=== PATIENT | female | born 1945 | race Caucasian/White ===

== ENCOUNTER 2021-05-10 07:28 | Outpatient (CLI) | payer MEDICARE, SELFPAY ==
--- NOTE | ~2021-05-10 | NM_ITS ---
EXAMINATION: NM jennifer stress w perfusion DATE: 05/10/2021 16:15 INDICATION: Dyspnea on exertion. TECHNIQUE: Rest images were obtained following intravenous administration of 9.441 mCi Tc99m tetrofos min (Myoview). The patient was infused intravenously with Lexiscan (regadenoson). Then, 29.1 mCi Tc99 m tetrofosmin (Myoview) was administered intravenously, and stress images were obtained. Data was rec onstructed into short axis and horizontal and vertical long axis SPECT images. Gated SPECT images wer e also obtained. COMPARISON: Chest CT 10/19/2018 FINDINGS: Sensitivity and specificity are decreased by breast attenuation and increased activity belo w the diaphragm. There is no definite reversible or fixed perfusion abnormality to suggest ischemia o r infarction. There is no segmental wall motion abnormality. Left ventricular ejection fraction erika sures 70%. IMPRESSION: 1. No definite ischemia or infarct. Sensitivity and specificity are decreased by breast attenuation a nd increased activity below the diaphragm. 2. Normal left ventricular ejection fraction measuring 70%. Reviewed, dictated and finalized at location A. IMPRESSION: 1. No definite ischemia or infarct. Sensitivity and specificity are decreased b y breast attenuation and increased activity below the diaphragm. 2. Normal left ventricular ejection fraction measuring 70%.
--- NOTE | 2021-05-10 07:50 | ECHO_ITS ---
Patient Info Name: Kelsy Coronado Age: 75 years : 1945 Gender: Female Ht: 65 in Wt: 210 lbs BSA: 2.13 m2 HR: 74 bpm BP: 165 / 106 mmHg Heart Rhythm: Atrial Fibrillation Technical Quality: Fair Exam Date: 05/10/2021 8:04 AM Exam Location: [facility] Pulmonary Patient Status: Outpatient Admit Date: 05/10/2021 Staff Ordering Physician: Armando Hawley DO [place] Supervisor: Lupe Small RDCS Attending Provider: Armando Hawley DO Referring Physician: Chandan VALDEZ; Exam Type: CA echo doppler color flow Study Info Indications R06.00 - Dyspnea, unspecified Complete two-dimensional, color flow and Doppler transthoracic echocardiogram is performed. Summary 1. Complete two-dimensional, color flow and Doppler transthoracic echocardiogram is performed. 2. Left ventricular chamber dimension is normal. 3. Left ventricular systolic function is normal, estimated at 55-60%. 4. There is moderately increased left ventricular wall thickness. 5. The left ventricular diastolic function is abnormal. 6. E/e' 20 is elevated. 7. Atrial fibrillation. 8. Left atrial chamber dimension is severely enlarged. 9. Right atrial chamber dimension is mildly enlarged. 10. There is moderate aortic valve sclerosis. 11. The mitral valve has mildly calcified annulus. 12. There is mild to moderate mitral valve regurgitation. 13. Mild pulmonary hypertension, estimated pulmonary arterial systolic pressure is 47 mmHg. Left Ventricle Atrial fibrillation. E/e' 20 is elevated. Left ventricular chamber dimension is normal. Left ventricular systolic function is normal, estimated at 55-60%. There is moderately increased left ventricular wall thickness. The left ventricular diastolic function is abnormal. Right Ventricle Right ventricular systolic function is normal and with normal TAPSE 1.9 cm. Right ventricular chamber dimension is normal. Left Atria Left atrial chamber dimension is severely enlarged. Right Atria Right atrial chamber dimension is mildly enlarged. Aortic Valve The aortic valve is trileaflet. There is moderate aortic valve sclerosis. There is no aortic valve stenosis. There is no aortic valve regurgitation. Pulmonic Valve There is no pulmonic regurgitation. Mitral Valve The mitral valve has mildly calcified annulus. There is no mitral valve stenosis. There is mild to moderate mitral valve regurgitation. Tricuspid Valve There is no tricuspid valve regurgitation. Mild pulmonary hypertension, estimated pulmonary arterial systolic pressure is 47 mmHg. Pericardium/Pleural There is no pericardial effusion. Inferior Vena Cava Normal inferior vena cava with >50% collapse upon inspiration consistent with normal right atrial pressure, 5 mmHg. Aorta The aortic root size at the sinus of Valsalva is normal. Left Ventricular Outflow Tract Name Value Normal LVOT 2D LVOT Diameter 2.0 cm LVOT Doppler LVOT Peak Gradient 2 mmHg LVOT Mean Gradient 1 mmHg LVOT VTI 18 cm LVOT VTI/AV VTI Ratio 0.8
--- NOTE | 2021-05-10 07:51 | EST_ITS ---
Patient Info Name: Kelsy Coronado Age: 75 years : 1945 Gender: Female Ht: 65 in Wt: 210 lbs BSA: 2.13 m2 HR: 73 bpm BP: 186 / 124 mmHg Heart Rhythm: Atrial Fibrillation Exam Date: 05/10/2021 10:42 AM Exam Location: [facility] Stress Patient Status: Outpatient Admit Date: 05/10/2021 Staff Ordering Physician: Armando Hawley DO Attending Provider: Armando Hawley DO Exercise Technologist: Poly Van CT Exercise Physician: Armando Hawley DO Exam Type: CA stress jennifer w NM Study Info Indications R06.00 - Dyspnea, unspecified A regadenoson stress test was performed. Summary 1. 1. Negative lexiscan stress test for ischemic ST changes by ECG criteria. 2. 2. Baseline hypertension. 3. 3. Nuclear scan to follow and will be reported separately. Please correlate with it. 4. 4. Patient informed of the above results. Protocol: Lexiscan Stress ECG Details Stage: REST Duration (min): 2 min : 1 sec HR (bpm): 71 SBP (mmHg): 186 DBP (mmHg): 121 Stage: REST Duration (min): 10 min : 33 sec HR (bpm): 60 SBP (mmHg): 200 DBP (mmHg): 121 Stage: STAGE 1 Duration (min): 1 min : 0 sec HR (bpm): 76 SBP (mmHg): 191 DBP (mmHg): 120 Stage: RECOVERY Duration (min): 1 min : 0 sec HR (bpm): 96 SBP (mmHg): 191 DBP (mmHg): 120 Stage: RECOVERY Duration (min): 2 min : 0 sec HR (bpm): 87 SBP (mmHg): 191 DBP (mmHg): 120 Stage: RECOVERY Duration (min): 3 min : 0 sec HR (bpm): 78 SBP (mmHg): 191 DBP (mmHg): 120 Stage: RECOVERY Duration (min): 3 min : 21 sec HR (bpm): 81 SBP (mmHg): 145 DBP (mmHg): 111 Rest HR: 60 bpm Peak HR: 96 bpm Rest Sys BP: 200 mmHg Peak Sys BP: 191 mmHg Max Pred HR: 143 bpm % Max Pred HR: 67 % Target HR: 122 bpm Max RPP: 18,336 bpm*mmHg Termination Reason: Completed protocol Cardiac Symptoms: Shortness of breath Total Time: 1 min : 0 sec Rest Vogt BP: 121 mmHg Peak Vogt BP: 120 mmHg Total Dose: 0.4 mg Resting ECG Atrial fibrillation, cannot r/o septal infarct, age indeterminate. Stress ECG No ST changes. Arrhythmias None. Report Signatures
== END 2021-05-10 07:29 | disposition home or self-care (01) ==
LOC: ANHCARD 07:31
PROVIDERS: PCP Internal Medicine Endocrinology, Diabetes & Metabolism; Visit Provider Internal Medicine Cardiovascular Disease
DX: R06.00 Dyspnea, unspecified (principal); I08.0 Rheumatic disorders of both mitral and aortic valves; I27.20 Pulmonary hypertension, unspecified
CPT/HCPCS: 78452; 93017; 93306; A9502; J2785

== ENCOUNTER 2021-05-16 18:19 | Emergency (ER) | payer MEDICARE, SELFPAY ==
--- NOTE | ~2021-05-16 | XR_ITS ---
XR elbow RT min 3V DATE: 05/16/2021 18:40 INDICATION: Fall, posterior elbow pain, swelling TECHNIQUE: 4 views COMPARISON: None FINDINGS: There is prominent posterior soft tissue swelling of the upper extremity centered at the el bow. Mild olecranon process spurring. Old healed fracture of the distal humeral shaft. No recent fracture or dislocation of the elbow. No elbow joint effusion. IMPRESSION: Prominent posterior soft tissue swelling Old healed distal humeral shaft fracture No recent fracture or dislocation or joint effusion Reviewed, dictated and finalized at location A.
--- NOTE | 2021-05-16 18:31 | ED.UPPEXIN ---
HPI - Extremity Injury (Upper) General Chief Complaint: Fall Stated Complaint: fell, right arm injury Time Seen by Provider: 05/16/21 18:22 Source: patient History of Present Illness HPI narrative: Patient presents with right elbow pain. Patient reports she was walking up the steps to her house when she lost her balance and fell onto her right elbow. She developed pain and swelling to the area so she came to the ER for an x-ray of her elbow. Pain is achy,,, does not radiate, worse with moving her elbow. She denies striking her head or any loss of conscious denies any focal numbness or weakness. Wrist there is mild limitations to moving her elbow due to the swelling. Denies any changes in vision she had a prodrome prior to the event such as chest pain shortness of breath lightheadedness or vertigo. She denies any headache, nausea, vomiting. Related Data Home Medications Medication Instructions Recorded Confirmed No Home Medications 04/05/21 04/05/21 apixaban 5 mg tablet 5 mg PO BID 04/08/21 04/08/21 atorvastatin 80 mg tablet 80 mg PO DAILY 04/08/21 04/08/21 carvedilol 25 mg tablet 25 mg PO BID tablet 04/08/21 04/08/21 hydralazine 50 mg tablet 50 mg PO TID 04/08/21 04/08/21 losartan 25 mg tablet 25 mg PO DAILY 04/08/21 04/08/21 magnesium 250 mg tablet 250 mg PO DAILY 04/08/21 04/08/21 potassium 99 mg tablet mg PO 04/08/21 04/08/21 torsemide 20 mg tablet 20 mg PO QID tablet 04/08/21 04/08/21 Allergies Allergy/AdvReac Type Severity Reaction Status Date / Time No Known Allergies Allergy Verified 05/16/21 18:54 Review of Systems Review of Systems: CONSTITUTIONAL: Denies fever, chills, or sweats. EYES: Denies visual changes, redness, or discharge. ENT: Denies rhinorrhea, congestion, sore throat, or otalgia. CARDIOVASCULAR: Denies chest pain, palpitations, or edema. RESPIRATORY: Denies cough or dyspnea. GASTROINTESTINAL: Denies abdominal pain, nausea, vomiting, or diarrhea. GENITOURINARY: Denies dysuria or hematuria. SKIN: Denies rash or itching. MUSCULOSKELETAL: Denies back pain, joint pain, or myalgia. NEUROLOGIC: Denies headache, numbness, dizziness, or weakness. PSYCHIATRIC: Denies anxiety or depression. All systems reviewed & are unremarkable except as noted in HPI and below PMFSH Past Medical History Medical History (Updated 05/16/21 @ 19:04 by Jake Wilkinson MD) MEHTA (dyspnea on exertion) Dyslipidemia Hypertension Obesity Persistent atrial fibrillation Social History Social History Smoking status: Never smoker Exam Narrative: GENERAL: Well-appearing, well-nourished, and in no acute distress. HEAD: Normocephalic, atraumatic. EYES: PERRLA and EOMI. ENT: Nares clear, no rhinorrhea or epistaxis. Mucous membranes moist. NECK: Supple. No masses. No JVD EXTREMITIES: Normal range of motion. Large amount of swelling noted around the right elbow no open or draining wounds no obvious deformity no focal bony tenderness distal extremity with cap refill less than 2 seconds. Patient has 5 out of 5 gas line repairer strength in the right upper extremity with sensation intact light touch SKIN: Warm, dry, no rash. NEURO: No focal deficits. Alert and oriented x3. PSYCH: Normal mood and affect. Course Reevaluation(s) Reevaluation #1: Patient resting comfortably no significant increase and edema appreciated on repeat exam. Plan goals reviewed with patient. Patient is comfortable with the outpatient plan. Date: 05/16/21 Time: 19:02 Vital Signs Vital signs: Vital Signs Temperature 37.0 C 05/16/21 18:32 Pulse Rate 75 05/16/21 18:32 Respiratory Rate 18 05/16/21 18:32 Blood Pressure 147/84 H 05/16/21 18:32 Pulse Oximetry 97 05/16/21 18:32 Temperature 37.0 C 05/16/21 18:32 Pulse Rate 74 05/16/21 18:52 Respiratory Rate 18 05/16/21 18:52 Blood Pressure 147/84 H 05/16/21 18:52 Pulse Oximetry 97 05/16/21 18:52 MDM - Extremity Injury (U
[2021-05-16 18:32] VITALS: BP 147/84; PULSE 75; RESP 18; TEMP 37; O2SAT 97
--- NOTE | 2021-05-16 18:35 | PC.NURSE ---
Radiology at bedside to obtain xray of R arm.
[2021-05-16 18:50] VITALS: PULSE 72; RESP 18; O2SAT 99
[2021-05-16 18:52] VITALS: BP 147/84; PULSE 74; RESP 18; O2SAT 97
--- NOTE | 2021-05-16 19:10 | PC.NURSE ---
Patient report given to ZAIDA Lemons. All questions answered and care of pt transferred.
== END 2021-05-16 19:30 | disposition home or self-care (01) ==
PROVIDERS: Emergency Provider Emergency Medicine; PCP Internal Medicine Endocrinology, Diabetes & Metabolism
DX: S50.01XA Contusion of right elbow, initial encounter (principal); E78.5 Hyperlipidemia, unspecified; I48.19 Other persistent atrial fibrillation; I10 Essential (primary) hypertension; E66.9 Obesity, unspecified; Z68.34 Body mass index [BMI] 34.0-34.9, adult; W10.9XXA Fall (on) (from) unspecified stairs and steps, initial encounter
CPT/HCPCS: 73080; 99283; A4565

== ENCOUNTER 2021-07-03 10:40 | Outpatient (CLI) | payer MEDICARE, SELFPAY ==
[2021-07-03 10:40] VITALS: PULSE 69; O2SAT 92
[2021-07-03 10:45] VITALS: PULSE 83; O2SAT 86
[2021-07-03 10:50] VITALS: PULSE 85; O2SAT 87
[2021-07-03 10:55] VITALS: PULSE 86; O2SAT 88
[2021-07-03 11:00] VITALS: PULSE 88; O2SAT 91
[2021-07-03 11:15] VITALS: PULSE 71; O2SAT 92
--- NOTE | 2021-07-03 13:45 | HOMEO2EVAL ---
Evaluation was performed at [facility] Home Oxygen Evaluation RC: Home Oxygen (O2) Evaluation Start: 07/03/21 13:39 Freq: Status: Active Protocol: RPE Activity Type Activity Date Activity User E-sign Co-sign Detail Recorded Client Recorded Date Recorded By Document 07/03/21 10:40 [email or web address] [email or web address] 07/03/21 13:45 DJO Document 07/03/21 10:45 [email or web address] [email or web address] 07/03/21 13:45 DJO Document 07/03/21 10:50 [email or web address] [email or web address] 07/03/21 13:45 DJO Document 07/03/21 10:55 [email or web address] [email or web address] 07/03/21 13:45 DJO Document 07/03/21 11:00 [email or web address] [email or web address] 07/03/21 13:45 DJO Document 07/03/21 11:15 [email or web address] [email or web address] 07/03/21 13:45 DJO 07/03/21 07/03/21 07/03/21 10:40 10:45 10:50 Home O2 Evaluation Test Phase Resting Exercise Exercise Oxygen Delivery Room Air Room Air Nasal Cannula Oxygen Flow Rate (L/min) 1 Pulse Oximetry (90-100 %) 92 86 L 87 L Pulse Rate (60-100 beats/min) 69 83 85 Activity Tolerance Ambulation Distance (feet) Ambulation Distance (meters) Treatment Charges O2 Evaluation - Outpatient 07/03/21 07/03/21 07/03/21 10:55 11:00 11:15 Home O2 Evaluation Test Phase Exercise Exercise Resting Oxygen Delivery Nasal Cannula Nasal Cannula Room Air Oxygen Flow Rate (L/min) 2 3 Pulse Oximetry (90-100 %) 88 L 91 92 Pulse Rate (60-100 beats/min) 86 88 71 Activity Tolerance Fair Ambulation Distance (feet) 200 Ambulation Distance (meters) 60.95 Treatment Charges
--- NOTE | 2021-07-05 13:27 | P.PCNPFT_ITS ---
PFT Procedure Performed PFT Procedure Performed Spirometry with Pre/Post Bronchodilator Plethysmography (Lung Vol) Diffusing Cap (DLCO) Flow Vol Loop PFT Interpretation Lung volumes were measured with the body plethysmography method. The elevated FRC and RV may suggest air trapping. Spirometry showed diminished expiratory flow rates and a normal FEV1 to FVC ratio of 73% indicative of a restrictive respiratory pattern. The spirometric absence of obstructive airway disease indicates that the elevated FRC and RV may be related to non-communicating air- filled structure or to error in measurement. Furthermore, the mildly elevated TLC excludes significant respiratory restrictive disease. Following admi nistration of a bronchodilator there was no significant change in the expiratory flow rates. Lung diffusion capacity is severely reduced at 37% predicted. The flow volume loop is consistent with restrictive respiratory disease. Isolated expiratory muscle weakness may explain the elevated RV but not the elevated FRC. If this pulmonary function testing is at odds with clinical data, consider rep eating the study. Impression: Nonspecific pattern. Elevated FRC and RV. Severely reduced lung diffusion capacity.
== END 2021-07-03 10:41 | disposition home or self-care (01) ==
PROVIDERS: PCP Internal Medicine Endocrinology, Diabetes & Metabolism; Visit Provider Internal Medicine Pulmonary Disease
DX: R06.02 Shortness of breath (principal); R06.00 Dyspnea, unspecified
CPT/HCPCS: 94060; 94618; 94726; 94729

== ENCOUNTER 2021-11-16 13:31 | Inpatient (IN) | payer MEDICARE, SELFPAY ==
[2021-11-16] VITALS (25 sets, daily range): BP systolic 124–172; BP diastolic 72–113; PULSE 70–94; RESP 14–28; TEMP 36.6–36.9; O2SAT 91–100; BMI 31.7
--- NOTE | ~2021-11-16 | US_ITS ---
EXAMINATION: US venous doppler [facility] DATE: 11/18/2021 16:11 INDICATION: Lower limb swelling TECHNIQUE: Sanchez scale images without and with compression and Doppler images of the bilateral lower e xtremity veins were obtained. COMPARISON: None FINDINGS: The right common femoral vein, profunda femoral vein, femoral vein, popliteal vein, peroneal trunk, p osterior tibial veins, and greater saphenous vein are patent. The left common femoral vein, profunda femoral vein, femoral vein, popliteal vein, peroneal trunk, po sterior tibial veins, and greater saphenous vein are patent. There is a 9.3 x 1.5 cm complex fluid co llection in the left medial popliteal fossa, probable Conte's cyst IMPRESSION: 1. Patent bilateral lower extremity veins. No evidence of deep venous thrombosis. Reviewed, dictated and finalized at location A. IMPRESSION: 1. Patent bilateral lower extremity veins. No evidence of deep venous thrombosi s.
--- NOTE | ~2021-11-16 | XR_ITS ---
XR chest 1V portable 11/16/2021 14:26 Indication: Shortness of breath Procedure: AP portable chest Comparison: 01/18/2016 Findings: Chronic elevation the right diaphragm. Cardiomegaly. There is interstitial edema. No signif icant effusion or pneumothorax. Impression: 1: Cardiomegaly with mild interstitial edema. Reviewed, dictated and finalized at location A. Impression: 1: Cardiomegaly with mild interstitial edema.
--- NOTE | ~2021-11-16 | US_ITS ---
US renal BI 11/17/2021 08:17 Procedure: Realtime transabdominal ultrasound of the kidneys and bladder. Indication: Acute renal insufficiency Comparison: No prior studies for comparison. Findings: Renal echotexture is normal bilaterally without hydronephrosis, contour deforming mass or r enal calculus. The right kidney measures 8.3 cm and left kidney measures 7.9 cm. Bladder within norm al limits. Impression: 1: Unremarkable renal ultrasound. No stones, masses or hydronephrosis. Reviewed, dictated and finalized at location A. Impression: 1: Unremarkable renal ultrasound. No stones, masses or hydronephrosis.
--- NOTE | ~2021-11-16 | XR_ITS ---
EXAMINATION: XR chest 1V portable DATE: 11/18/2021 06:03 INDICATION: Congestive heart failure. TECHNIQUE: A single frontal view of the chest was obtained. COMPARISON: Chest single view 11/16/2021, chest CT 10/19/2018 FINDINGS: There is chronic marked elevation of right hemidiaphragm. There is mild atelectasis at righ t lung base. No pleural effusion or pneumothorax. Cardiomegaly is noted. IMPRESSION: 1. Chronic marked elevation of right hemidiaphragm with mild atelectasis at right lung base. 2. Cardiomegaly. Reviewed, dictated and finalized at location A. IMPRESSION: 1. Chronic marked elevation of right hemidiaphragm with mild atelectasis at rig ht lung base. 2. Cardiomegaly.
--- NOTE | ~2021-11-16 | US_ITS ---
EXAMINATION: US venous doppler UE DATE: 11/18/2021 16:12 INDICATION: Shortness of breath. Congestive heart failure. TECHNIQUE: Grayscale images without and with compression and Doppler images of the bilateral upper ex tremity veins were obtained. COMPARISON: None. FINDINGS: The right internal jugular vein, subclavian vein, axillary vein, brachial vein, basilic vein, cephali c vein, radial vein, and ulnar vein are patent. The left internal jugular vein, subclavian vein, axillary vein, brachial vein, basilic vein, cephalic vein, radial vein, and ulnar vein are patent. IMPRESSION: 1. Patent bilateral upper extremity veins. No evidence of venous thrombosis. Reviewed, dictated and finalized at location B.
--- NOTE | 2021-11-16 13:41 | PC.NURSE ---
Patient was 55% on her baseline 5L upon arrival to her room in the ED. Patient was placed on 15L NRB and O2 went up to 100%. MD at bedside at this time
--- NOTE | 2021-11-16 13:52 | ECG_ITS ---
Measurements Intervals [place] Rate: 79 P: [place]: 0 QRS: 82 QRSD: 87 T: -2 QT: 398 QTc: 459 Interpretive Statements ATRIAL FIBRILLATION NONSPECIFIC ST AND T ABNORMALITY ABNORMAL ECG NO PREVIOUS ECG AVAILABLE FOR COMPARISON Electronically Signed On 11-17-2021 10:13:27 CDT by Skinny Magana M.D.
[2021-11-16 14:10] LABS: Alveolar/Arterial O2 Gradient 145.4 mmHg; Base Excess ABG 19.7 mEq/l (+/-2.0); Basophils Percent Auto 0.3 % (0.2-1.2); Carboxyhemoglobin 0.8 % THb (0-2.0); Eosinophils Absolute Auto 0.1 K/mm3 (0-0.3); Eosinophils Percent Auto 2.8 % (0-4.4); Fractional Inspired Oxygen 40 %; HCO3 ABG 47.4 mEq/l (22.0-26.0); Hematocrit 27.1 % (37.0-47.0); Hemoglobin 7.8 g/dL (12.0-15.0); Immature Granulocyte Absolute 0.01 K/mm3 (0.00-0.031); Immature Granulocyte Percent A 0.3 % (0-0.5); Lymphocytes Absolute Auto 1.39 K/mm3 (0.9-3.2); Lymphocytes Percent Auto 39.4 % (18.3-44.2); Mean Corpuscular HGB Conc 28.8 g/dl (32-36); Mean Corpuscular Hemoglobin 23.4 pg (26-34); Mean Corpuscular Volume 81.4 fl (80-100); Mean Platelet Volume 11.1 fl (7.4-10.4); Methemoglobin ABG 0.7 %THb (0-1.5); Monocytes Absolute Auto 0.4 K/mm3 (0.1-0.6); Monocytes Percent Auto 11.9 % (2.6-8.5); Neutrophils Absolute Auto 1.6 K/mm3 (1.3-6.7); Neutrophils Percent Auto 45.3 % (45.5-73.1); Nucleated Red Blood Cells Perc 0.8 % (0.0-0.2); Oxygen Content ABG 9.8 %vol (16.0-22.0); PO2 FiO2 Ratio Arterial Blood 1.19 %; Platelet Count Result 200 k/mm3 (150-375); Red Blood Count 3.33 M/mm3 (4.2-5.4); Red Cell Distribution Width 20.5 % (11.5-14.5); Total Hemoglobin 8.8 g/dL (12.0-18.0); White Blood Count 3.5 K/mm3 (4.5-10.0); pH ABG 7.391 (7.350-7.450)
[2021-11-16 14:12] LABS: PO2 ABG 47.8 mmHg (80.0-100.0)
[2021-11-16 14:13] LABS: Device NASAL CANNULA; Modified Allen's Test Pass; Oxygen Saturation ABG 80.6 % (95.0-100.0); Oxyhemoglobin 78.5 % THb (90.0-100.0); Site Drawn RIGHT RADIAL
[2021-11-16 14:19] LABS: INR 1.5; Prothrombin Time 17.2 Seconds (11.1-14.7)
[2021-11-16 14:23] LABS: Platelet Estimate Adequate (Adequate)
[2021-11-16 14:26] LABS: Anisocytosis 2+ (NORMAL); Macrocytosis 2+ (NORMAL); Microcytosis 1+ (NORMAL)
[2021-11-16 14:27] LABS: Hypochromasia 2+ (NORMAL); Ovalocytes 1+ (NORMAL); Schistocytes 1+ (NORMAL); Target Cells 1+ (NORMAL)
[2021-11-16] MEDS: FUROSEMIDE INJ 40 MG/4 ML VIAL IV PUSH ×2 (14:46→20:53)
[2021-11-16 15:07] LABS: Alanine Aminotransferase 26 U/L (6-35); Albumin Level 3.6 g/dL (3.5-5.1); Alkaline Phosphatase 89 U/L (38-126); Aspartate Amino Transferase 36 U/L (14-36); Bilirubin,Total 0.7 mg/dL (0.2-1.3); Blood Urea Nitrogen 34 mg/dL (7-17); Calcium 8.5 mg/dL (8.4-10.2); Carbon Dioxide > 40 mmol/L (22-30); Chloride 88 mmol/L (98-107); Estimated CRCL calculation 25 ml/min; Estimated Glomerular Filt Rate 26; Glucose 134 mg/dL (65-110); Potassium 3.7 mmol/L (3.4-5.0); Sodium 142 mmol/L (137-145)
[2021-11-16 15:18] LABS: NT Pro B Type Natriuretic Pept 12100 pg/mL (5-100); Troponin I 0.022 ng/mL (0.000-0.034)
--- NOTE | 2021-11-16 15:27 | ED.GENADULT ---
HPI - General Adult General Chief complaint: Altered Mental Status Stated complaint: sob Time Seen by Provider: 11/16/21 13:37 Source: patient, family and RN notes reviewed Mode of arrival: wheelchair Limitations: clinical condition History of Present Illness HPI narrative: THis is a 76 year old female with history of COPD, CHF, chronic respiratory failure on 3 L NC at rest who presents for evaluation of bilateral leg swelling. On arrival patient was found to be 55% on her home oxygen compressor. Her family states her oxygen saturation was fine prior to arrival. She was not complaining of shortness of breath. Patient was coming to ER because she was having bilateral leg swelling today. She reports chronic shortness of breath and chronic cough for several months. She was admitted to [facility] approximately 2 months ago and she was admitted for CHF. They were told that if patient had worsening swellling she needs to come to ER. She denies chest pain, fever, vomiting or diarrhea. Related Data Home Medications Medication Instructions Recorded Confirmed losartan 25 mg tablet 25 mg PO DAILY 04/08/21 11/16/21 magnesium 250 mg tablet 250 mg PO DAILY 04/08/21 11/16/21 potassium 99 mg tablet 99 mg PO DAILY 04/08/21 11/16/21 calcium carbonate 400 mg/5 mL oral 400 mg PO DAILY 06/17/21 11/16/21 suspension cholecalciferol (vitamin D3) 25 25 mcg PO DAILY 06/17/21 11/16/21 mcg (1,000 unit) capsule mecobalamin (vitamin B12) 5,000 5,000 mcg PO DAILY 06/17/21 11/16/21 mcg disintegrating tablet torsemide 20 mg tablet 20 mg PO QID 07/01/21 11/16/21 apixaban 5 mg tablet (Eliquis) 5 mg PO Q12H 11/16/21 11/16/21 carvedilol 25 mg tablet 25 mg PO Q12H 11/16/21 11/16/21 ferrous sulfate 325 mg (65 mg 325 mg PO DAILY 11/16/21 11/16/21 iron) tablet Allergies Allergy/AdvReac Type Severity Reaction Status Date / Time No Known Allergies Allergy Verified 07/01/21 10:16 Review of Systems Review of Systems: All systems reviewed & are unremarkable except as noted in HPI and below Constitutional: Constitutional: Denies chills, Reports fatigue and Denies fever(s) ENT: Denies nasal congestion Cardiovascular: Cardiovascular: Denies chest pain Respiratory: Respiratory: Reports cough and Reports dyspnea Gastrointestinal: Gastrointestinal: Denies abdominal pain, Denies nausea and Denies vomiting [facility] Past Medical History Medical History (Updated 11/16/21 @ 22:27 by Amena Jain MD) MEHTA (dyspnea on exertion) Dyslipidemia Hypertension Obesity Persistent atrial fibrillation Surgical History Surgical History (Updated 11/16/21 @ 22:17 by Amena Jain MD) No pertinent past surgical history Social History Social History Smoking status: Former smoker Exam Const: General: ill appearing Nutritional Appearance: obese Other: lethargic HENMT: Head: normal to inspection Eyes: EOM: EOMs intact bilaterally Resp: Effort & Inspection: labored, tachypneic and no use of accessory muscles Auscultation: crackles bilateral Cardio: Rate: regular rate Rhythm: regular rhythm Heart sounds: no murmurs GI: GI Palp: Yes Soft to palpation, No Tenderness to palpation present (GI) and No Guarding due to palpation present (GI) Auscultation: normal bowel sounds Skin: General skin exam: normal color Rashes: no rashes Wounds: no wounds Neuro: General: moves all extremities and CN's II-XI intact bilaterally Extrem: General: edema bilateral (leg) Psych: Mental Status: mental status grossly normal Affect: normal affect Attitude: cooperative Course Reevaluation(s) Reevaluation #1: Patient reports she feels better. She is on 5L NC with 97% oxygen saturation. Her ABG is likely mixed but she appears to be compensating. No BIPAP at this time. She will be admitted for CHF, pulmonary edema. Maryking Serrato accepts patient to IMU Date: 11/16/21 Time:
[2021-11-16 17:06] LABS: SARS-CoV-2 RNA PCR Negative
--- NOTE | 2021-11-16 18:08 | ADMGEN ---
This patient, Kelsy Coronado, was admitted to IMU Room 213-01. Patient/family oriented to hospital policies and general routines including ID bracelet, bed and alarms, visiting hours, pain management, procedures, bathroom and other care routines, personal items, smoking policy, room service/diet, and visiting hours. Information on how to activate the Rapid Response Team has been discussed. Patient/Family are encouraged to report perceived risks to care and to ask questions if they do not understand what they are told or what they should do.
--- NOTE | 2021-11-16 20:37 | PM.IMHP ---
H&P: HPI History of Present Illness Date/Time: 11/16/21 20:37 Chief Complaint: shortness of breath Narrative: This is a 76-year-old female with past medical history significant for atrial fibrillation, rate controlled anticoagulated, chronic hypoxic respiratory failure on 3 L by nasal cannula at rest and 4 L with exercise, 3 L at nighttime. patient presents to the emergency room due to worsening shortness of breath for the last 2 months or so recently hospitalized at outside facility, has noted worsening bilateral lower extremity edema and shortness of breath with minimal exertion, patient denies any chest pain, has had some PND and orthopnea as well, no fevers, no rigors, no chills, no nausea, no vomiting. preliminary workup was significant for hemoglobin of 7.8, hematocrit 27, blood gas showed a pH of 7.391, pCO2 80, PO2 47 brain natriuretic peptide 56442 an EKG was interpreted as: ATRIAL FIBRILLATION SEPTAL MYOCARDIAL INFARCTION , OF INDETERMINATE AGE [40+ ms Q WAVE IN V1/V2] NO PREVIOUS ECG AVAILABLE FOR COMPARISON a chest x-ray was reported as: Impression: 1: Cardiomegaly with mild interstitial edema. patient has been admitted for further evaluation management and treatment. Review of Systems Review of Systems: bilateral lower extremity swelling, shortness of breath at exertion, productive cough. Constitutional: Constitutional: Denies chills, Denies fever(s), Denies malaise, Denies night sweats and Denies poor appetite Eyes: Eyes: Denies change in vision ENT: Denies dysphagia, Denies vertigo, Denies dizziness and Denies odynophagia Cardiovascular: Cardiovascular: Denies chest pain, Denies syncope, Denies irregular heart rhythm, Reports leg edema, Denies lightheadedness, Denies palpitations, Reports dyspnea on exertion, Reports orthopnea and Reports paroxysmal nocturnal dyspnea Respiratory: Respiratory: Reports cough and Denies wheezing Gastrointestinal: Gastrointestinal: Denies abdominal pain, Denies dyspepsia, Denies heartburn, Denies diarrhea, Denies nausea and Denies vomiting Genitourinary: Genitourinary: Reports no additional female genitourinary complaints and Reports as per HPI Musculoskeletal: Musculoskeletal: Reports no additional musculoskeletal complaints and Reports as per HPI Integumentary/Breasts: Skin/Breast: Denies rash Neurologic: Denies vertigo, Denies dizziness, Denies syncope, Denies focal weakness and Denies Sensory deficit (Neuro) Psychiatric: Psychiatric: Reports no additional psychiatric complaints and Reports as per HPI Endocrine: Endocrine: Denies cold intolerance, Denies flushing, Denies heat intolerance, Denies polyphagia, Denies polydipsia and Denies palpitations Hematologic/Lymphatic: Hematologic/Lymphatic: Reports no additional hematologic/lymphatic complaints and Reports as per HPI Allergic/Immunologic: Allergic/Immunologic: Reports no additional allergic/immunologic complaints and Reports as per HPI PMFSH Past Medical History Medical History (Updated 11/17/21 @ 04:35 by Paula Chang MD) MEHTA (dyspnea on exertion) Dyslipidemia Hypertension Obesity Persistent atrial fibrillation Surgical History Surgical History (Updated 11/16/21 @ 22:17 by Amena Jain MD) No pertinent past surgical history Family History Family History (Updated 11/16/21 @ 22:32 by Mariya House RN) Sibling Breast cancer Mother Breast cancer Other Breast cancer Niece Social History Social History Smoking status: Never smoker Alcohol intake: never Substance use: never Spiritual care concerns: No Meds Home Medications and Allergies Home Medications Medication Instructions Recorded Confirmed Type losartan 25 mg tablet 25 mg PO DAILY 04/08/21 11/16/21 History magnesium 250 mg tablet 250 mg PO DAILY 04/08/21 11/16/21 History potassium 99 mg tablet 99 mg PO DAILY 04/08/21 11/16/21 History
[2021-11-17] VITALS (17 sets, daily range): BP systolic 139–174; BP diastolic 66–112; PULSE 60–93; RESP 16–24; TEMP 35.7–36.9; O2SAT 92–100
[2021-11-17 05:06] LABS: Basophils Percent Auto 0.6 % (0.2-1.2); Eosinophils Absolute Auto 0.1 K/mm3 (0-0.3); Eosinophils Percent Auto 2.8 % (0-4.4); Hematocrit 27.5 % (37.0-47.0); Hemoglobin 7.9 g/dL (12.0-15.0); Immature Granulocyte Absolute 0.01 K/mm3 (0.00-0.031); Immature Granulocyte Percent A 0.3 % (0-0.5); Lymphocytes Absolute Auto 1.32 K/mm3 (0.9-3.2); Lymphocytes Percent Auto 36.5 % (18.3-44.2); Mean Corpuscular HGB Conc 28.7 g/dl (32-36); Mean Corpuscular Hemoglobin 23.2 pg (26-34); Mean Corpuscular Volume 80.9 fl (80-100); Mean Platelet Volume 10.8 fl (7.4-10.4); Monocytes Absolute Auto 0.4 K/mm3 (0.1-0.6); Monocytes Percent Auto 11.3 % (2.6-8.5); Neutrophils Absolute Auto 1.8 K/mm3 (1.3-6.7); Neutrophils Percent Auto 48.5 % (45.5-73.1); Platelet Count Result 175 k/mm3 (150-375); Red Cell Distribution Width 20.1 % (11.5-14.5); White Blood Count 3.6 K/mm3 (4.5-10.0)
[2021-11-17 05:25] LABS: Alanine Aminotransferase 26 U/L (6-35); Albumin Level 3.8 g/dL (3.5-5.1); Alkaline Phosphatase 100 U/L (38-126); Aspartate Amino Transferase 37 U/L (14-36); Bilirubin,Total 0.9 mg/dL (0.2-1.3); Blood Urea Nitrogen 29 mg/dL (7-17); Calcium 9.1 mg/dL (8.4-10.2); Carbon Dioxide > 40 mmol/L (22-30); Chloride 85 mmol/L (98-107); Estimated CRCL calculation 23 ml/min; Estimated Glomerular Filt Rate 24; Glucose 96 mg/dL (65-110); Potassium 3.4 mmol/L (3.4-5.0); Sodium 142 mmol/L (137-145)
[2021-11-17 05:45] LABS: Anisocytosis 1+ (NORMAL); Hypochromasia 1+ (NORMAL); Platelet Estimate Adequate (Adequate)
[2021-11-17 07:03] LABS: Schistocytes None Seen (NORMAL)
[2021-11-17] MEDS: CHOLECALCIFEROL 1,000 UNITS TABLET 1000 UNITS PO (10:48)
[2021-11-17] MEDS: ISOSORBIDE DINITRATE 10 MG TABLET PO ×3 (10:48→18:23)
[2021-11-17] MEDS: MAGNESIUM OXIDE 200 MG TABLET PO (10:48)
[2021-11-17] MEDS: APIXABAN 5 MG TABLET PO ×2 (10:48→20:55)
[2021-11-17] MEDS: hydrALAZINE HCL 50 MG TABLET PO ×3 (10:48→18:23)
[2021-11-17] MEDS: FERROUS SULFATE 324 MG TABLET PO (10:48)
[2021-11-17] MEDS: CYANOCOBALAMIN 1,000 MCG TABLET 5000 MCG PO (10:48)
[2021-11-17] MEDS: carvediloL 25 MG TABLET PO ×2 (10:48→20:55)
[2021-11-17] MEDS: CALCIUM CARBONATE (TUMS) 500 MG (200 MG ELEMENTAL) 400 MG BY MOUTH (10:49)
[2021-11-17] MEDS: FUROSEMIDE INJ 40 MG/4 ML VIAL IV PUSH ×2 (10:51→20:55)
--- NOTE | 2021-11-17 11:51 | PM.IMPN ---
Progress Note: A&P Assessment and Plan (1) CHF exacerbation: Code(s): I50.9 - Heart failure, unspecified Status: Acute Assessment and Plan: ADMIT TO IMU continuous telemetry continuous pulse ox aggressive diuresis daily intake and output Holland catheter daily weights fluid restriction to 1500 cc (2) Acute and chronic respiratory failure: Code(s): J96.20 - Acute and chronic respiratory failure, unspecified whether with hypoxia or hypercapnia Status: Acute Assessment and Plan: pH is 7.39 appears to be chronically compensated however patient dropped oxygen saturation to 70% with minimal activity currently on her usual requirement supplemental oxygen continue to monitor (3) Diastolic dysfunction: Code(s): I51.89 - Other ill-defined heart diseases Status: Acute Assessment and Plan: continue home meds continue to monitor (4) KEIRA (obstructive sleep apnea): Code(s): G47.33 - Obstructive sleep apnea (adult) (pediatric) Status: Acute Assessment and Plan: patient is on nasal cannula supplemental oxygen 3 L at bedtime (5) Persistent atrial fibrillation: Code(s): I48.19 - Other persistent atrial fibrillation Status: Acute Assessment and Plan: anticoagulated rate controlled (6) JUAN MANUEL (acute kidney injury): Code(s): N17.9 - Acute kidney failure, unspecified Status: Acute Assessment and Plan: on known baseline renal ultrasound in a.m. nephrology consult holding losartan and torsemide however patient appears fluid overload on physical exam Subjective Date/time seen: 11/17/21 11:51 Breathing better Exam Narrative: Patient is laying in bed in recumbent right-sided position Const: General: comfortable, no acute distress, well developed, alert, awake and average body habitus Nutritional Appearance: average body habitus Orientation/consciousness: patient oriented x3 HENMT: Head: normal to inspection, normocephalic and atraumatic Ears: hearing grossly normal bilaterally Face/Nose/Sinus: normal facial exam Face and sinus: normal facial exam Eyes: General: appearance normal, both eyes and all related structures Pupils: Equal, round and reactive pupils present EOM: EOMs intact bilaterally Neck: Neck: full ROM, no lymphadenopathy and no JVD Thyroid: thyroid normal Lymphatic: no lymphadenopathy noted Resp: Effort & Inspection: normal respiratory effort and able to speak in complete sentences Auscultation: clear to auscultation bilaterally Cardio: Jugular venous distension: no JVD Rate: regular rate Rhythm: abnormal rhythm irregularly irregular Heart sounds: S1 normal heart sound present, S2 normal heart sound present, no gallops and Murmur heart sound present GI: Inspection: normal to inspection : General: Yes deferred Skin: Rashes: no rashes Wounds: no wounds Neuro: General: patient oriented x3, CN's II-XI intact bilaterally and Unable to assess gait Cranial nerves: Yes CN's II-XII intact bilaterally and Yes Equal, round and reactive pupils present Cognition (Neuro): normal cognition Speech: normal speech Gait exam (Neuro): Unable to assess gait Motor exam (neuro): 5/5 motor strength present throughout Sensory Exam: No Sensory deficit (Neuro) Extrem: General: edema bilateral (LE 3+) Objective Data Vital Signs Vital Signs: Vital Signs - 24 hr 11/16/21 13:38 11/16/21 14:01 11/16/21 13:45 Temperature Pulse Rate 92 70 83 Respiratory Rate 23 H 18 25 H Blood Pressure 160/82 H 168/113 H Pulse Oximetry 100 91 100 Oxygen Delivery Non-Rebreather Mask Oxygen Flow Rate 15 11/16/21 14:00 11/16/21 14:15 11/16/21 14:45 Temperature Pulse Rate 87 79 Respiratory Rate 19 25 H Blood Pressure 124/76 146/91 H Pulse Oximetry 99 97 97 Oxygen Delivery Nasal Cannula Oxygen Flow Rate 5 11/16/21 15:15 11/16/21 15:45 11/16/21 16:15 Temperature Pulse Rate 8
--- NOTE | 2021-11-17 12:23 | PM.CNNEP ---
Assessment and Plan Assessment and plan (1) Stage 3b chronic kidney disease: Code(s): N18.32 - Chronic kidney disease, stage 3b Status: Chronic Assessment and Plan: baseline creatinine runs around 1.8mg/dl presumably due to HTN and necessity of chronic diuretic therapy recent hospitalization at [facility] about a month ago -- with aggressive diuresis, her creatinine went as high as 2.8mg/dl hence, suspect her renal function will always fluctuate depending on the need for diuretics to maintain her volume status (2) CHF exacerbation: Code(s): I50.9 - Heart failure, unspecified Status: Acute Assessment and Plan: recurrent issue -- admitted to [facility] in October 2021 for same issue follow daily weights monitor I/Os fluid restriction see #1 with regard to renal function and diuresis (3) Acute and chronic respiratory failure: Code(s): J96.20 - Acute and chronic respiratory failure, unspecified whether with hypoxia or hypercapnia Status: Acute Assessment and Plan: drops in oxygen saturation noted from my discussion with nursing, unclear if pulse oximeter getting accurate readings on chronic home oxygen already monitor respiratory status (4) Persistent atrial fibrillation: Code(s): I48.19 - Other persistent atrial fibrillation Status: Chronic Assessment and Plan: rate control strategy on anticoagulation Will continue to follow. History of Present Illness Reason for Consult Consult date: 11/17/21 Reason for consult: chronic renal failure Chief Complaint Chief complaint: acute on chronic resp failure, CHF History of Present Illness Narrative: The patient is a 76-year-old female with a past medical history as outlined below who presented to [facility] emergency for further evaluation of bilateral lower extremity edema/swelling. The patient was just recently hospitalized at [facility] for a CHF exacerbation. She was treated with aggressive diuretic therapy as well as fluid restriction and eventually her respiratory status optimized. She was instructed that if she noted increasing or worsening lower extremity edema, she should return to the ER as this could be a early manifestation of another CHF exacerbation. As this was the case on physical exam by both the patient as well as her family, she came back to the emergency room for further evaluation Workup and evaluation emergency room demonstrated the patient to be hemodynamically stable but she was reportedly with a 55% pulse oximetry reading even though she was on her chronic home oxygen therapy. Her family reported that her oxygen saturations were within the normal range prior to their arrival to the emergency room. Furthermore, the patient herself did not complain of any worsening shortness of breath although she has chronic shortness of breath at baseline. She confirmed that the main reason she came to the hospital was due to the worsening bilateral lower extremity swelling. However, on further questioning, she did report that she has seem to notice some worsening shortness of breath with just exertional activities. She had no other symptoms or complaints with regard to chest pain, fever, vomiting, diarrhea, or abdominal pain. Routine blood test demonstrated labs consistent with her known history of chronic kidney disease and her chest x-ray demonstrated evidence of cardiomegaly with mild interstitial edema. Given her complex medical history as already outlined above in conjunction with the constellation of symptoms and findings in the ER, she was admitted the hospital for further evaluation and therapy Renal consultation was requested due to her known chronic kidney disease. From review of the records, it would seem there is some concern that she may have had acute kidney injury/acute renal failure but I was able to confirm by records obtained from [facility]
[2021-11-17] MEDS: FUROSEMIDE INJ 40 MG/4 ML VIAL 20 MG IV PUSH (15:18)
[2021-11-17 17:11] LABS: Basophils Percent Auto 0.6 % (0.2-1.2); Eosinophils Absolute Auto 0.1 K/mm3 (0-0.3); Eosinophils Percent Auto 3.5 % (0-4.4); Hemoglobin 7.9 g/dL (12.0-15.0); Lymphocytes Percent Auto 38.1 % (18.3-44.2); Mean Corpuscular HGB Conc 29.3 g/dl (32-36); Mean Corpuscular Hemoglobin 23.6 pg (26-34); Mean Corpuscular Volume 80.6 fl (80-100); Mean Platelet Volume 10.5 fl (7.4-10.4); Monocytes Absolute Auto 0.4 K/mm3 (0.1-0.6); Neutrophils Absolute Auto 1.4 K/mm3 (1.3-6.7); Neutrophils Percent Auto 44.8 % (45.5-73.1); Nucleated Red Blood Cells Perc 1.3 % (0.0-0.2); Platelet Count Result 165 k/mm3 (150-375); Red Blood Count 3.35 M/mm3 (4.2-5.4); Red Cell Distribution Width 20.3 % (11.5-14.5); White Blood Count 3.2 K/mm3 (4.5-10.0)
[2021-11-17 17:18] LABS: Platelet Estimate Adequate (Adequate)
[2021-11-17 17:19] LABS: Anisocytosis 1+ (NORMAL); Hypochromasia 1+ (NORMAL); Ovalocytes 1+ (NORMAL); Schistocytes None Seen (NORMAL); Target Cells 2+ (NORMAL)
[2021-11-17 17:24] LABS: Blood Urea Nitrogen 32 mg/dL (7-17); Calcium 8.7 mg/dL (8.4-10.2); Carbon Dioxide > 40 mmol/L (22-30); Chloride 84 mmol/L (98-107); Estimated CRCL calculation 27 ml/min; Estimated Glomerular Filt Rate 29; Glucose 113 mg/dL (65-110); Potassium 3.5 mmol/L (3.4-5.0); Sodium 142 mmol/L (137-145)
[2021-11-17 17:38] LABS: NT Pro B Type Natriuretic Pept 17300 pg/mL (5-100)
[2021-11-17 19:41] LABS: Alveolar/Arterial O2 Gradient 185.3 mmHg; Base Excess ABG 23.6 mEq/l (+/-2.0); Fractional Inspired Oxygen 45 %; HCO3 ABG 50.9 mEq/l (22.0-26.0); Oxygen Content ABG 10.3 %vol (16.0-22.0); PO2 FiO2 Ratio Arterial Blood 1.08 %; Total Hemoglobin 8.8 g/dL (12.0-18.0); pH ABG 7.442 (7.350-7.450)
[2021-11-17 19:48] LABS: PCO2 ABG 76.3 mmHg (35.0-45.0)
[2021-11-17 19:49] LABS: PO2 ABG 48.8 mmHg (80.0-100.0)
[2021-11-17 19:50] LABS: Oxygen Saturation ABG 83.5 % (95.0-100.0); Oxyhemoglobin 82.6 % THb (90.0-100.0); Site Drawn RIGHT RADIAL
[2021-11-17 19:51] LABS: Device HIGH FLOW THERAPY; Modified Allen's Test Pass
[2021-11-17] MEDS: SODIUM CHLORIDE NASAL GEL 14.1 GM 1 APPLIC NASAL (23:38)
[2021-11-18] VITALS (15 sets, daily range): BP systolic 137–186; BP diastolic 76–107; PULSE 58–90; RESP 20–24; TEMP 36.4–36.9; O2SAT 93–100; BMI 32.0
[2021-11-18 04:36] LABS: Basophils Percent Auto 0.8 % (0.2-1.2); Eosinophils Absolute Auto 0.2 K/mm3 (0-0.3); Eosinophils Percent Auto 4.1 % (0-4.4); Hematocrit 24.8 % (37.0-47.0); Hemoglobin 7.3 g/dL (12.0-15.0); Immature Granulocyte Absolute 0.01 K/mm3 (0.00-0.031); Immature Granulocyte Percent A 0.3 % (0-0.5); Lymphocytes Absolute Auto 1.25 K/mm3 (0.9-3.2); Mean Corpuscular HGB Conc 29.4 g/dl (32-36); Mean Corpuscular Hemoglobin 23.5 pg (26-34); Mean Platelet Volume 11.3 fl (7.4-10.4); Monocytes Absolute Auto 0.5 K/mm3 (0.1-0.6); Monocytes Percent Auto 14.7 % (2.6-8.5); Neutrophils Absolute Auto 1.7 K/mm3 (1.3-6.7); Neutrophils Percent Auto 46.1 % (45.5-73.1); Platelet Count Result 173 k/mm3 (150-375); Red Cell Distribution Width 19.9 % (11.5-14.5); White Blood Count 3.7 K/mm3 (4.5-10.0)
[2021-11-18 04:57] LABS: Albumin Level 3.5 g/dL (3.5-5.1); Blood Urea Nitrogen 31 mg/dL (7-17); Calcium 8.6 mg/dL (8.4-10.2); Carbon Dioxide > 40 mmol/L (22-30); Chloride 85 mmol/L (98-107); Estimated CRCL calculation 25 ml/min; Estimated Glomerular Filt Rate 27; Glucose 98 mg/dL (65-110); Phosphorus 3.6 mg/dL (2.5-4.5); Potassium 3.2 mmol/L (3.4-5.0); Sodium 141 mmol/L (137-145)
[2021-11-18 05:00] LABS: NT Pro B Type Natriuretic Pept 15600 pg/mL (5-100)
[2021-11-18 05:03] LABS: Hypochromasia 1+ (NORMAL); Platelet Estimate Adequate (Adequate); Target Cells 2+ (NORMAL)
[2021-11-18 06:34] LABS: Alveolar/Arterial O2 Gradient 269.7 mmHg; Fractional Inspired Oxygen 60 %; HCO3 ABG 49.6 mEq/l (22.0-26.0); Oxygen Saturation ABG 92.9 % (95.0-100.0); Oxyhemoglobin 91.3 % THb (90.0-100.0); PO2 ABG 69.2 mmHg (80.0-100.0); PO2 FiO2 Ratio Arterial Blood 1.15 %; Total Hemoglobin 8.5 g/dL (12.0-18.0); pH ABG 7.406 (7.350-7.450)
[2021-11-18 06:36] LABS: Device HIGH FLOW THERAPY; Modified Allen's Test Pass; PCO2 ABG 80.8 mmHg (35.0-45.0); Site Drawn LEFT RADIAL
[2021-11-18] MEDS: CALCIUM CARBONATE (TUMS) 500 MG (200 MG ELEMENTAL) 400 MG BY MOUTH (09:38)
[2021-11-18] MEDS: FUROSEMIDE INJ 40 MG/4 ML VIAL IV PUSH ×2 (09:39→21:58)
[2021-11-18] MEDS: POTASSIUM CHLORIDE 10 MEQ TABLET.ER PO (09:39)
[2021-11-18] MEDS: carvediloL 25 MG TABLET PO ×2 (09:39→21:58)
[2021-11-18] MEDS: APIXABAN 5 MG TABLET PO ×2 (09:39→21:58)
[2021-11-18] MEDS: hydrALAZINE HCL 50 MG TABLET PO ×3 (09:39→18:09)
[2021-11-18] MEDS: CYANOCOBALAMIN 1,000 MCG TABLET 5000 MCG PO (09:39)
[2021-11-18] MEDS: FERROUS SULFATE 324 MG TABLET PO (09:39)
[2021-11-18] MEDS: MAGNESIUM OXIDE 200 MG TABLET PO (09:39)
[2021-11-18] MEDS: ISOSORBIDE DINITRATE 10 MG TABLET PO ×3 (09:39→18:09)
[2021-11-18] MEDS: CHOLECALCIFEROL 1,000 UNITS TABLET 1000 UNITS PO (09:42)
--- NOTE | 2021-11-18 10:03 | PM.IMPN ---
Progress Note: A&P Assessment and Plan (1) CHF exacerbation: Code(s): I50.9 - Heart failure, unspecified Status: Acute Assessment and Plan: continue IV diuretic. Chest x-ray is improved. (2) Acute and chronic respiratory failure: Code(s): J96.20 - Acute and chronic respiratory failure, unspecified whether with hypoxia or hypercapnia Status: Acute Assessment and Plan: Patient is retaining CO2. Oxygenation is little better on her ABG. Patient is on oxygen at home. She may need more support at home as well. Have Pulmonary evaluate the patient (3) Diastolic dysfunction: Code(s): I51.89 - Other ill-defined heart diseases Status: Acute Assessment and Plan: continue home meds continue to monitor (4) KEIRA (obstructive sleep apnea): Code(s): G47.33 - Obstructive sleep apnea (adult) (pediatric) Status: Acute Assessment and Plan: patient is on nasal cannula supplemental oxygen 3 L at bedtime (5) Persistent atrial fibrillation: Code(s): I48.19 - Other persistent atrial fibrillation Status: Chronic Assessment and Plan: anticoagulated rate controlled (6) JUAN MANUEL (acute kidney injury): Code(s): N17.9 - Acute kidney failure, unspecified Status: Acute Assessment and Plan: patient does have chronic kidney disease and she is likely At baseline. Subjective Date/time seen: 11/18/21 10:03 Patient had to be placed on Airvo overnight to maintain oxygen. ABG this morning shows CO2 retention. Patient denies any new complaints Exam Const: General: comfortable, no acute distress, well developed, alert, awake and average body habitus Nutritional Appearance: average body habitus Orientation/consciousness: patient oriented x3 HENMT: Head: normal to inspection, normocephalic and atraumatic Ears: hearing grossly normal bilaterally Face/Nose/Sinus: normal facial exam Face and sinus: normal facial exam Eyes: General: appearance normal, both eyes and all related structures Pupils: Equal, round and reactive pupils present EOM: EOMs intact bilaterally Neck: Neck: full ROM, no lymphadenopathy and no JVD Thyroid: thyroid normal Lymphatic: no lymphadenopathy noted Resp: Effort & Inspection: normal respiratory effort and able to speak in complete sentences Auscultation: clear to auscultation bilaterally Cardio: Jugular venous distension: no JVD Rate: regular rate Rhythm: abnormal rhythm irregularly irregular Heart sounds: S1 normal heart sound present, S2 normal heart sound present, no gallops and Murmur heart sound present GI: Inspection: normal to inspection : General: Yes deferred Skin: Rashes: no rashes Wounds: no wounds Neuro: General: patient oriented x3, CN's II-XI intact bilaterally and Unable to assess gait Cranial nerves: Yes CN's II-XII intact bilaterally and Yes Equal, round and reactive pupils present Cognition (Neuro): normal cognition Speech: normal speech Gait exam (Neuro): Unable to assess gait Motor exam (neuro): 5/5 motor strength present throughout Sensory Exam: No Sensory deficit (Neuro) Extrem: General: edema bilateral (LE 3+) Objective Data Vital Signs Vital Signs: Vital Signs - 24 hr 11/17/21 10:48 11/17/21 12:00 11/17/21 16:00 Temperature 98.4 F 96.3 F L Pulse Rate 78 87 79 Respiratory Rate 16 20 Blood Pressure 161/112 H 139/86 Pulse Oximetry 100 92 Oxygen Delivery Oxygen Flow Rate Fraction of Inspired Oxygen 11/17/21 12:00 11/17/21 14:00 11/17/21 16:00 Temperature Pulse Rate 80 74 62 Respiratory Rate Blood Pressure Pulse Oximetry Oxygen Delivery Oxygen Flow Rate Fraction of Inspired Oxygen 11/17/21 12:00 11/17/21 16:00 11/17/21 18:21 Temperature Pulse Rate Respiratory Rate Blood Pressure Pulse Oximetry 92 95 99 Oxygen Delivery High Flow Therapy with Na High Flow Nasal Cannula High Flow Therapy with Na Oxygen
--- NOTE | 2021-11-18 11:59 | PCNSR ---
On 11/18/21, the student,Jason Leiva, provided care and [facility]. I have reviewed the student's documentation and agree with the findings.
--- NOTE | 2021-11-18 12:47 | PM.PNNEP ---
Progress Note: A&P Assessment and Plan (1) Stage 3b chronic kidney disease: Code(s): N18.32 - Chronic kidney disease, stage 3b Status: Chronic Assessment and Plan: baseline creatinine runs around 1.8mg/dl presumably due to HTN and necessity of chronic diuretic therapy recent hospitalization at [facility] about a month ago -- with aggressive diuresis, her creatinine went as high as 2.8mg/dl hence, suspect her renal function will always fluctuate depending on the need for diuretics to maintain her volume status (2) CHF exacerbation: Code(s): I50.9 - Heart failure, unspecified Status: Acute Assessment and Plan: recurrent issue -- admitted to [facility] in October 2021 for same issue follow daily weights monitor I/Os fluid restriction see #1 with regard to renal function and diuresis Cardiology consulted (3) Acute and chronic respiratory failure: Code(s): J96.20 - Acute and chronic respiratory failure, unspecified whether with hypoxia or hypercapnia Status: Acute Assessment and Plan: drops in oxygen saturation noted on chronic home oxygen already Pulmonary consultation ordered monitor respiratory status (4) Hypertension: Code(s): I10 - Essential (primary) hypertension Status: Chronic Assessment and Plan: still somewhat elevated on carvedilol, nitrate, and hydralazine -- titrate as needed follow trend of hemodynamics (5) Persistent atrial fibrillation: Code(s): I48.19 - Other persistent atrial fibrillation Status: Chronic Assessment and Plan: rate control strategy on anticoagulation Will continue to follow. Subjective Date/time seen: 11/18/21 12:47 Respiratory status still remains somewhat tenuous at this time; issues with ongoing hypoxia overnight requiring use of Airvo; reasonable diuresis in the last 24 hours with relative stability if not mild improvement in renal function; no other acute complaints voiced. Exam Narrative: General: elderly AA female in NAD Heart: normal S1 and S2; no rub Lungs: coarse breath sounds and decreased at bases Abdomen: soft, nontender, nondistended, positive bowel sounds Extremities: no cyanosis or clubbing; 1+ edema Skin: warm and dry Objective Data Vital Signs Vital Signs: Vital Signs Temp Pulse Resp BP Pulse Ox O2 Del Method O2 Flow Rate 11/18/21 12:00 36.6 C 73 20 186/107 H 95 11/18/21 09:39 79 11/18/21 09:19 79 97 High Flow Therapy with Na 40 11/18/21 08:00 36.9 C 58 L 24 H 166/97 H 98 11/18/21 05:48 90 11/18/21 04:00 73 11/18/21 04:00 36.4 C 83 20 155/87 H 93 11/18/21 04:00 94 High Flow Nasal Cannula 40 11/18/21 02:00 78 11/18/21 00:00 76 11/17/21 22:00 72 11/17/21 20:00 77 11/18/21 00:00 100 High Flow Nasal Cannula 40 11/17/21 23:26 36.6 C 70 20 142/66 H 100 11/17/21 20:00 94 High Flow Nasal Cannula 40 11/17/21 18:20 83 18 94 High Flow Therapy with Na 40 11/17/21 20:55 88 11/17/21 20:00 36.5 C 60 20 155/92 H 100 11/17/21 18:00 84 11/17/21 18:21 99 High Flow Therapy with Na 40 Intake/Output Intake/Output: Intake & Output 11/15/21 11/16/21 11/17/21 11/18/21 23:59 23:59 23:59 23:59 Intake Total 1070 640 Output Total 600 2300 900 Balance -793 -9413 -743 Meds/Results Medications: Active Medications Generic Name Dose Route Start Last Admin Trade Name Freq PRN Reason Stop Dose Admin Albuterol 2.5 mg 11/17/21 05:24 Albuterol Sulfate Neb 2.5 Mg/0.5 Ml Inh INHALATION Q4H PRN shortness of breath Apixaban 5 mg 11/17/21 09:00 11/18/21 09:39 Apixaban 5 Mg Tablet PO 5 mg Q12HR JOSE Administration Calcium Carbonate 400 mg 11/17/21 09:00 11/18/21 09:38 Calcium Carbonate (Tums) 500 Mg (200 Mg Elemental) BY MOUTH 400 mg DAILY JOSE Administration
--- NOTE | 2021-11-18 12:47 | P.PNNP_ITS ---
Progress Note: A&P Assessment and Plan (1) Stage 3b chronic kidney disease: Code(s): N18.32 - Chronic kidney disease, stage 3b Status: Chronic Assessment and Plan: * baseline creatinine runs around 1.8mg/dl * presumably due to HTN and necessity of chronic diuretic therapy * recent hospitalization at [facility] about a month ago -- with aggressive diuresis, her creatinine went as high as 2.8mg/dl * hence, suspect her renal function will always fluctuate depending on the need for diuretics to maintain her volume status (2) CHF exacerbation: Code(s): I50.9 - Heart failure, unspecified Status: Acute Assessment and Plan: * recurrent issue -- admitted to [facility] in October 2021 for same issue * follow daily weights * monitor I/Os * fluid restriction * see #1 with regard to renal function and diuresis * Cardiology consulted (3) Acute and chronic respiratory failure: Code(s): J96.20 - Acute and chronic respiratory failure, unspecified whether with hypoxia or hypercapnia Status: Acute Assessment and Plan: * drops in oxygen saturation noted * on chronic home oxygen already * Pulmonary consultation ordered * monitor respiratory status (4) Hypertension: Code(s): I10 - Essential (primary) hypertension Status: Chronic Assessment and Plan: * still somewhat elevated * on carvedilol, nitrate, and hydralazine -- titrate as needed * follow trend of hemodynamics (5) Persistent atrial fibrillation: Code(s): I48.19 - Other persistent atrial fibrillation Status: Chronic Assessment and Plan: * rate control strategy * on anticoagulation Will continue to follow. Subjective Date/time seen: 11/18/21 12:47 Respiratory status still remains somewhat tenuous at this time; issues with ongoing hypoxia overnight requiring use of Airvo; reasonable diuresis in the last 24 hours with relative stability if not mild improvement in renal function; no other acute complaints voiced. Exam Narrative: General: elderly AA female in NAD Heart: normal S1 and S2; no rub Lungs: coarse breath sounds and decreased at bases Abdomen: soft, nontender, nondistended, positive bowel sounds Extremities: no cyanosis or clubbing; 1+ edema Skin: warm and dry Objective Data Vital Signs Vital Signs: Vital Signs Temp Pulse Resp BP Pulse Ox O2 Del Method O2 Flow Rate 11/18/21 12:00 36.6 C 73 20 186/107 H 95 11/18/21 09:39 79 11/18/21 09:19 79 97 High Flow Therapy with Na 40 11/18/21 08:00 36.9 C 58 L 24 H 166/97 H 98 11/18/21 05:48 90 11/18/21 04:00 73 11/18/21 04:00 36.4 C 83 20 155/87 H 93 11/18/21 04:00 94 High Flow Nasal Cannula 40 11/18/21 02:00 78 11/18/21 00:00 76 11/17/21 22:00 72 11/17/21 20:00 77 11/18/21 00:00 100 High Flow Nasal Cannula 40 11/17/21 23:26 36.6 C 70 20 142/66 H 100 11/17/21 20:00 94 High Flow Nasal Cannula 40 11/17/21 18:20 83 18 94 High Flow Therapy with Na 40 11/17/21 20:55 88 11/17/21 20:00 36.5 C 60 20 155/92 H 100 11/17/21 18:00 84 11/17/21 18:21 99 High Flow Therapy with Na 40 Intake/Output Intake/Output:
[2021-11-18 13:26] LABS: D Dimer 2.22 ug/mL (<0.48)
--- NOTE | 2021-11-18 14:21 | PM.CNPUL ---
Assessment and Plan Assessment and plan (1) Respiratory failure with hypoxia and hypercapnia: Code(s): J96.91 - Respiratory failure, unspecified with hypoxia; J96.92 - Respiratory failure, unspecified with hypercapnia Status: Acute Assessment and Plan: 75-year-old with a history of hypoxic respiratory failure on 3 L rest and 4 L with ambulation, 3 L night, chronic right diaphragm paralysis (seen on our first CXR from 01/18/2016), PFTs on 07/03/2021 demonstrated normal spirometry, normal lung volumes with a moderately severe decreased FVC and FEV1. There is no bronchodilator response, and her severely decreased on adjusted DLCO normalized when adjusted for alveolar volume. There was no significant change in the FVC and FEV1 from 12/28/2019. KEIRA diagnosed 12/23/2018 and subsequently intolerant of BiPAP, Nocturnal hypoxemia from 06/26/2021 on 3 L nasal cannula saturations less than or equal to 88% of 20.9 minutes. overnight oximetry on 07/11/2021 on 5 L nasal cannula showed time with saturation less than or equal to 88% at 187.5 minutes. Patient was placed back to 3 L nasal cannula. She had a prior echo which showed an EF of 45% and a DEVON did not show any ASD or PFO although has not had a dedicated bubble study. Echo on 05/10/2021 with Heart failure with normal systolic function 55-60%) and diastolic dysfunction, severely enlarged LA, mild to moderate MR, PASP 47 with normal RV size and function and normal RA size. HTN, atrial fibrillation on chronic anticoagulation. Etiology of patient's hypoxemic and hypercarbic respiratory failure include: fluid overload from HFpEF and abnormal diastolic function, obesity hypoventilation syndrome, chronic right diaphragm paralysis, untreated obstructive sleep apnea. I do not see evidence of an active infection and the patient is a never smoker and does not have COPD or asthma. Patient presents with edema, congestion on her chest x-ray, elevated BNP and has responded to IV Lasix with 2.7 L out since admission. Unfortunately patient's oxygen requirements have increased and she remains with dyspnea on exertion. I would continue aggressive diuresis as tolerated by her cardiac and renal systems per hospitalist and Cardiology teams. Patient has obesity hypoventilation syndrome with a blood gas of 7.39/80/48 and would benefit from noninvasive ventilation. Unfortunately patient has been intolerant to BiPAP for many years and again tells me today she is not willing to try BiPAP. I told her this may be her last hope to provider any type of comfortable existence in the future and she declines any attempt at initiating noninvasive ventilation. The patient has chronic right hemidiaphragm attic elevation since 2016. The patient's has untreated obstructive sleep apnea diagnosed with an inpatient sleep study at [facility] on 12/23/2018 but has subsequently been intolerant to BiPAP. as above patient is on willing to attempt noninvasive ventilation at this time. she tells me they made multiple adjustments and used multiple mass but she just cannot wear the mask on her face and has never been able to sleep with the mask on her face. Patient has been on apixaban for atrial fibrillation making PE less likely, her D-dimer is positive, I will check an upper and lower extremity Dopplers to exclude DVT. Continue apixaban for at this time. Will check echocardiogram with bubble study to exclude right to left shunt. Patient is DNR. Discussed with Dr. Ingram. Will follow with you. History of Present Illness History of Present Illness Consult date: 11/18/21 Chief complaint: acute on chronic resp failure, CHF Narrative: 11/18/2021: This is a new pulmonary consult for hypoxemic and hypercarbic respiratory failure. Patient followed in the Pulmonary Clinic once and last seen on 06/17/2021 and prior to that she was followed in [facility] and last seen there on 12/28/2019.
--- NOTE | 2021-11-18 16:32 | PM.CNCAR ---
Assessment and Plan Assessment and plan (1) Diastolic heart failure: Code(s): I50.30 - Unspecified diastolic (congestive) heart failure Status: Acute Assessment and Plan: She appears euvolemic on physical exam. Continue IV Lasix 40 mg IV q12 hr and reassess tomorrow. Monitor electrolytes and renal function. Start Jardiance 10 mg daily for HFPEF. (2) Persistent atrial fibrillation: Code(s): I48.19 - Other persistent atrial fibrillation Status: Chronic Assessment and Plan: [id number] 3. On Eliquis. Rate is controlled on Coreg. (3) Hypertension: Code(s): I10 - Essential (primary) hypertension Status: Acute Assessment and Plan: High. On Coreg 25 mg BID, Isordil 10 mg TID, Hydralazine 50 mg TID. Monitor. (4) Dyslipidemia: Code(s): E78.5 - Hyperlipidemia, unspecified Status: Acute History of Present Illness History of Present Illness Consult date/time: 11/18/21 16:32 Reason For Visit: acute on chronic resp failure, CHF Narrative: 76 yr old woman who is my regular cardiology patient who I saw once in the office who came to ER for sob. She has a history of diastolic dysfunction, atrial fibrillation since 2019 and had DC cardioversion in 2019 but had return of atrial fib and rate controlled (was seeing [facility] cardiology), hypertension, dyslipidemia, COPD on 3 l/m oxygen all the time, mildly abnormal sleep study but did not tolerate CPAP (per patient). States she was admitted to [facility] for 1 week for sob and swelling of legs. She was diuresed but had some kidney impairment so she was not fully diuresed. She comes in for the same reason with sob, edema of legs. She has been diuresed. Reports she is limited at walking from one room to the next due to fatigue/MEHTA since 2019. Denies chest pain, orthopnea, PND, edema, palpitiations, dizziness. Cardiovascular Procedures Echo/MUGA:: 05/10/21 Echo: EF 55-60%, mod LVH, diastolic dysfunction (E/e' 20), severe LAE, mild WILBUR, mild MAC, mild-mod MR/RVSP 47 mmHg. 09/15/19 at [facility] Echo: EF 56%, grade II diastolic dysfunction, PAP 44 + RAP. 2018 echo at [facility]: EF 46%. Electrophysiology:: 04/08/21 EKG: Atrial fibrillation at 67 bpm. Stress Tests:: 05/10/21 Lexiscan myoview: Negative. [facility] Past Medical History Medical History (Updated 11/18/21 @ 16:37 by Armando Hawley DO) MEHTA (dyspnea on exertion) Dyslipidemia Hypertension Obesity Persistent atrial fibrillation Surgical History Surgical History (Updated 11/16/21 @ 22:17 by Amena Jain MD) No pertinent past surgical history Family History Family History (Updated 11/16/21 @ 22:32 by Mariya House RN) Sibling Breast cancer Mother Breast cancer Other Breast cancer Niece Social History Social History Smoking status: Never smoker Alcohol intake: never Substance use: never Spiritual care concerns: No Meds Home Medications and Allergies Home Medications Medication Instructions Recorded Confirmed Type losartan 25 mg tablet 25 mg PO DAILY 04/08/21 11/16/21 History magnesium 250 mg tablet 250 mg PO DAILY 04/08/21 11/16/21 History potassium 99 mg tablet 99 mg PO DAILY 04/08/21 11/16/21 History hydralazine 50 mg tablet 50 mg PO TID #90 tabs 05/29/21 11/16/21 Rx isosorbide dinitrate 10 mg tablet 10 mg PO TID #90 tabs 05/29/21 11/16/21 Rx calcium carbonate 400 mg/5 mL oral 400 mg PO DAILY 06/17/21 11/16/21 History suspension cholecalciferol (vitamin D3) 25 25 mcg PO DAILY 06/17/21 11/16/21 History mcg (1,000 unit) capsule ipratropium 0.5 mg-albuterol 3 mg 3 ml inhalation Q4H PRN shortness 06/17/21 11/16/21 Rx (2.5 mg base)/3 mL nebulization of breath #90 mL soln mecobalamin (vitamin B12) 5,000 5,000 mcg PO DAILY 06/17/21 11/16/21 History mcg disintegrating tablet torsemide 20 mg tablet 20 mg PO QID 07/01/21 11/16/21 History apixaban 5 mg tablet (Eliquis) 5 mg
[2021-11-18] MEDS: SODIUM CHLORIDE NASAL GEL 14.1 GM 1 APPLIC NASAL (21:59)
[2021-11-19] VITALS (16 sets, daily range): BP systolic 122–169; BP diastolic 62–95; PULSE 50–96; RESP 12–20; TEMP 36.3–37; O2SAT 93–100
[2021-11-19 05:00] LABS: Basophils Percent Auto 0.3 % (0.2-1.2); Eosinophils Absolute Auto 0.2 K/mm3 (0-0.3); Eosinophils Percent Auto 4.7 % (0-4.4); Hemoglobin 7.7 g/dL (12.0-15.0); Immature Granulocyte Absolute 0.01 K/mm3 (0.00-0.031); Immature Granulocyte Percent A 0.3 % (0-0.5); Lymphocytes Absolute Auto 1.13 K/mm3 (0.9-3.2); Lymphocytes Percent Auto 35.8 % (18.3-44.2); Mean Corpuscular HGB Conc 28.5 g/dl (32-36); Mean Corpuscular Hemoglobin 23.1 pg (26-34); Mean Corpuscular Volume 81.1 fl (80-100); Mean Platelet Volume 10.4 fl (7.4-10.4); Monocytes Absolute Auto 0.4 K/mm3 (0.1-0.6); Neutrophils Absolute Auto 1.5 K/mm3 (1.3-6.7); Neutrophils Percent Auto 45.9 % (45.5-73.1); Nucleated Red Blood Cells Perc 0.6 % (0.0-0.2); Platelet Count Result 167 k/mm3 (150-375); Red Blood Count 3.33 M/mm3 (4.2-5.4); Red Cell Distribution Width 19.9 % (11.5-14.5); White Blood Count 3.2 K/mm3 (4.5-10.0)
[2021-11-19 05:23] LABS: Albumin Level 3.6 g/dL (3.5-5.1); Blood Urea Nitrogen 28 mg/dL (7-17); Calcium 8.9 mg/dL (8.4-10.2); Carbon Dioxide > 40 mmol/L (22-30); Chloride 86 mmol/L (98-107); Estimated CRCL calculation 26 ml/min; Estimated Glomerular Filt Rate 27; Glucose 98 mg/dL (65-110); Phosphorus 4.3 mg/dL (2.5-4.5); Potassium 3.5 mmol/L (3.4-5.0); Sodium 141 mmol/L (137-145)
--- NOTE | 2021-11-19 08:27 | PM.PNCARD ---
Progress Note: A&P Assessment and Plan (1) Diastolic heart failure: Code(s): I50.30 - Unspecified diastolic (congestive) heart failure Status: Acute Assessment and Plan: She appears euvolemic on physical exam. On Lasix 40 mg IV q12 hr. Monitor electrolytes and renal function. Start Jardiance 10 mg daily for HFPEF. Echo was ordered with bubble study pending. D/C IV Lasix. Start Furosemide 40 mg PO BID and Spironolactone 25 mg daily. Monitor potassium and renal function. (2) Persistent atrial fibrillation: Code(s): I48.19 - Other persistent atrial fibrillation Status: Chronic Assessment and Plan: [id number] 3. On Eliquis. Rate is controlled on Coreg. (3) Hypertension: Code(s): I10 - Essential (primary) hypertension Status: Chronic Assessment and Plan: High. On Coreg 25 mg BID, Isordil 10 mg TID, Hydralazine 50 mg TID. Monitor. Start Spironolactone 25 mg daily. (4) Dyslipidemia: Code(s): E78.5 - Hyperlipidemia, unspecified Status: Acute Subjective Date/time seen: 11/19/21 08:27 Interval history: Denies chest pain. Has chronic sob. Exam Const: General: cooperative, healthy appearing and comfortable Resp: Auscultation: clear to auscultation bilaterally, no crackles, no rales, no rhonchi and no wheezes Cardio: Rate: regular rate Rhythm: abnormal rhythm Heart sounds: no murmurs Peripheral pulses: dorsalis pedis present GI: GI Palp: No abdominal tenderness and Yes Soft to palpation Neuro: General: oriented to person, oriented to place and oriented to time Extrem: Right lower extremity: no edema Left lower extremity: no edema Objective Data Vital Signs Vital Signs: Vital Signs - 24 hr 11/18/21 09:19 11/18/21 09:39 11/18/21 12:00 Temperature 98 F Pulse Rate 79 79 73 Respiratory Rate 20 Blood Pressure 186/107 H Pulse Oximetry 97 95 Oxygen Delivery High Flow Therapy with Na Oxygen Flow Rate 40 Fraction of Inspired Oxygen 65 11/18/21 16:00 11/18/21 10:00 11/18/21 12:00 Temperature 98 F Pulse Rate 84 85 76 Respiratory Rate 24 H Blood Pressure 137/81 Pulse Oximetry 95 Oxygen Delivery Oxygen Flow Rate Fraction of Inspired Oxygen 11/18/21 14:00 11/18/21 16:00 11/18/21 18:00 Temperature Pulse Rate 85 70 72 Respiratory Rate Blood Pressure Pulse Oximetry Oxygen Delivery Oxygen Flow Rate Fraction of Inspired Oxygen 11/18/21 12:00 11/18/21 16:00 11/18/21 20:00 Temperature 98.0 F Pulse Rate 88 Respiratory Rate 20 Blood Pressure 167/76 H Pulse Oximetry 98 98 100 Oxygen Delivery High Flow Therapy with Na High Flow Therapy with Na Oxygen Flow Rate 40 40 Fraction of Inspired Oxygen 65 65 11/18/21 21:58 11/18/21 20:00 11/18/21 20:00 Temperature Pulse Rate 81 81 81 Respiratory Rate 20 Blood Pressure Pulse Oximetry 100 Oxygen Delivery High Flow Therapy with Na Oxygen Flow Rate 40 Fraction of Inspired Oxygen 60 11/18/21 22:00 11/19/21 00:00 11/19/21 00:00 Temperature Pulse Rate 70 76 70 Respiratory Rate 20 Blood Pressure Pulse Oximetry 100 Oxygen Delivery High Flow Therapy with Na Oxygen Flow Rate 40 Fraction of Inspired Oxygen 60 11/19/21 00:00 11/19/21 02:00 11/19/21 00:00 Temperature 97.9 F Pulse Rate 50 L 83 Respiratory Rate 20 Blood Pressure 130/80 Pulse Oximetry 98 99 Oxygen Delivery High Flow Therapy with Na Oxygen Flow Rate 40 Fraction of Inspired Oxygen 60 11/19/21 04:00 11/19/21 04:00 11/19/21 04:00 Temperature 97.6 F Pulse Rate 75 79 75 Respiratory Rate 20 20 Blood Pressure 159/95 H Pulse Oximetry 100 100 Oxygen Delivery High Flow Therapy with Na Oxygen Flow Rate 40 Fraction of Inspired Oxygen 60 11/19/21 06:00 11/19/21 08:00 Temperature 98 F Pulse Rate 75 82 Respiratory Rate 20 Blood Pressure 169/91 H Pulse Oximetry 100 Oxygen Delivery
--- NOTE | 2021-11-19 08:32 | P.PNPL_ITS ---
Progress Note: A&P Assessment and Plan (1) Respiratory failure with hypoxia and hypercapnia: Code(s): J96.91 - Respiratory failure, unspecified with hypoxia; J96.92 - Respiratory failure, unspecified with hypercapnia Status: Acute Assessment and Plan: 75-year-old with a history of hypoxic respiratory failure on 3 L rest and 4 L with ambulation, 3 L night, chronic right diaphragm paralysis (seen on our first CXR from 01/18/2016), PFTs on 07/03/2021 demonstrated normal spirometry, normal lung volumes with a moderately severe decreased FVC and FEV1. There is no bronchodilator response, and her severely decreased on adjusted DLCO normalized when adjusted for alveolar volume. There was no significant change in the FVC and FEV1 from 12/28/2019. KEIRA diagnosed 12/23/2018 and subsequently intolerant of BiPAP, Nocturnal hypoxemia from 06/26/2021 on 3 L nasal cannula saturations less than or equal to 88% of 20.9 minutes. overnight oximetry on 07/11/2021 on 5 L nasal cannula showed time with saturation less than or equal to 88% at 187.5 minutes. Patient was placed back to 3 L nasal cannula. She had a prior echo which showed an EF of 45% and a DEVON did not show any ASD or PFO although has not had a dedicated bubble study. Echo on 05/10/2021 with Heart failure with normal systolic function 55-60%) and diastolic dysfunction, severely enlarged LA, mild to moderate MR, PASP 47 with normal RV size and function and normal RA size. HTN, atrial fibrillation on chronic anticoagulation. Etiology of patient's hypoxemic and hypercarbic respiratory failure include: fluid overload from HFpEF and abnormal diastolic function, obesity hypoventilation syndrome, chronic right diaphragm paralysis, untreated obstructive sleep apnea. I do not see evidence of an active infection and the patient is a never smoker and does not have COPD or asthma. Patient presents with edema, congestion on her chest x-ray, elevated BNP and has responded to IV Lasix with 2.7 L out since admission. Unfortunately patient's oxygen requirements have increased and she remains with dyspnea on exertion. I would continue aggressive diuresis as tolerated by her cardiac and renal systems per hospitalist and Cardiology teams. Patient has obesity hypoventilation syndrome with a blood gas of 7.39/80/48 and would benefit from noninvasive ventilation. Unfortunately patient has been intolerant to BiPAP for many years and again tells me today she is not willing to try BiPAP. I told her this may be her last hope to provider any type of comfortable existence in the future and she declines any attempt at initiating noninvasive ventilation. The patient has chronic right hemidiaphragm attic elevation since 2016. The patient's has untreated obstructive sleep apnea diagnosed with an inpatient sleep study at [facility] on 12/23/2018 but has subsequently been intolerant to BiPAP. as above patient is on willing to attempt noninvasive ventilation at this time. she tells me they made multiple adjustments and used multiple mass but she just cannot wear the mask on her face and has never been able to sleep with the mask on her face. Patient has been on apixaban for atrial fibrillation making PE less likely, her D-dimer is positive, negative upper and lower extremity Dopplers to exclude DVT. Continue apixaban for at this time. Will check echocardiogram with bubble study to exclude right to left shunt. Cardiology was consulted and jardiance 10 mg a day was started. 11/19 Patient remains on high-flow nasal cannula oxygen with Airvo 40 L and 60% FiO2 with saturations 100%. Patient states she slept a little bit and denies any worsening shortness of breath
--- NOTE | 2021-11-19 09:56 | P.PNNP_ITS ---
Progress Note: A&P Assessment and Plan (1) Stage 3b chronic kidney disease: Code(s): N18.32 - Chronic kidney disease, stage 3b Status: Chronic Assessment and Plan: * baseline creatinine runs around 1.8mg/dl * presumably due to HTN and necessity of chronic diuretic therapy * recent hospitalization at [facility] about a month ago -- with aggressive diuresis, her creatinine went as high as 2.8mg/dl * hence, suspect her renal function will always fluctuate depending on the need for diuretics to maintain her volume status (2) CHF exacerbation: Code(s): I50.9 - Heart failure, unspecified Status: Acute Assessment and Plan: * recurrent issue -- admitted to [facility] in October 2021 for same issue * follow daily weights * monitor I/Os * fluid restriction * see #1 with regard to renal function and diuresis * Cardiology following with recommendations noted (3) Acute and chronic respiratory failure: Code(s): J96.20 - Acute and chronic respiratory failure, unspecified whether with hypoxia or hypercapnia Status: Acute Assessment and Plan: * on chronic home oxygen already * Pulmonary following * ongoing recommendations noted * monitor respiratory status (4) Hypertension: Code(s): I10 - Essential (primary) hypertension Status: Chronic Assessment and Plan: * doing better * on carvedilol, nitrate, and hydralazine -- titrate as needed * follow trend of hemodynamics (5) Persistent atrial fibrillation: Code(s): I48.19 - Other persistent atrial fibrillation Status: Chronic Assessment and Plan: * rate control strategy * on anticoagulation Will continue to follow. Subjective Date/time seen: 11/19/21 09:56 Remains on significant oxygen requirements at the time of my visit but she denies any worsening shortness of breath other than what she has at baseline; transitioning to oral diuretic therapy today; renal function tolerating diuretic therapy; no acute distress noted. Exam Narrative: General: elderly AA female in NAD Heart: normal S1 and S2; no rub Lungs: coarse breath sounds and decreased at bases Abdomen: soft, nontender, nondistended, positive bowel sounds Extremities: no cyanosis or clubbing; 1+ edema Skin: warm and intact Objective Data Vital Signs Vital Signs: Vital Signs Temp Pulse Resp BP Pulse Ox O2 Del Method O2 Flow Rate 11/19/21 08:27 78 18 98 High Flow Therapy with Na 40 11/19/21 08:00 36.6 C 82 20 169/91 H 100 11/19/21 06:00 75 11/19/21 04:00 75 20 100 High Flow Therapy with Na 40 11/19/21 04:00 79 11/19/21 04:00 36.4 C 75 20 159/95 H 100 11/19/21 00:00 99 High Flow Therapy with Na 40 11/19/21 02:00 83 11/19/21 00:00 36.6 C 50 L 20 130/80 98 11/19/21 00:00 70 20 100 High Flow Therapy with Na 40 11/19/21 00:00 76 11/18/21 22:00 70 11/18/21 20:00 81 20 100 High Flow Therapy with Na 40 11/18/21 20:00 81 11/18/21 21:58 81 11/18/21 20:00 36.7 C 88 20 167/76 H 100 11/18/21 16:00 98 High Flow Therapy with Na 40 11/18/21 12:00 98 High Flow Therapy with Na 40 11/18/21 18:00 72 11/18/21 16:00 70 11/18/21 14:00 85
--- NOTE | 2021-11-19 09:56 | PM.PNNEP ---
Progress Note: A&P Assessment and Plan (1) Stage 3b chronic kidney disease: Code(s): N18.32 - Chronic kidney disease, stage 3b Status: Chronic Assessment and Plan: baseline creatinine runs around 1.8mg/dl presumably due to HTN and necessity of chronic diuretic therapy recent hospitalization at [facility] about a month ago -- with aggressive diuresis, her creatinine went as high as 2.8mg/dl hence, suspect her renal function will always fluctuate depending on the need for diuretics to maintain her volume status (2) CHF exacerbation: Code(s): I50.9 - Heart failure, unspecified Status: Acute Assessment and Plan: recurrent issue -- admitted to [facility] in October 2021 for same issue follow daily weights monitor I/Os fluid restriction see #1 with regard to renal function and diuresis Cardiology following with recommendations noted (3) Acute and chronic respiratory failure: Code(s): J96.20 - Acute and chronic respiratory failure, unspecified whether with hypoxia or hypercapnia Status: Acute Assessment and Plan: on chronic home oxygen already Pulmonary following ongoing recommendations noted monitor respiratory status (4) Hypertension: Code(s): I10 - Essential (primary) hypertension Status: Chronic Assessment and Plan: doing better on carvedilol, nitrate, and hydralazine -- titrate as needed follow trend of hemodynamics (5) Persistent atrial fibrillation: Code(s): I48.19 - Other persistent atrial fibrillation Status: Chronic Assessment and Plan: rate control strategy on anticoagulation Will continue to follow. Subjective Date/time seen: 11/19/21 09:56 Remains on significant oxygen requirements at the time of my visit but she denies any worsening shortness of breath other than what she has at baseline; transitioning to oral diuretic therapy today; renal function tolerating diuretic therapy; no acute distress noted. Exam Narrative: General: elderly AA female in NAD Heart: normal S1 and S2; no rub Lungs: coarse breath sounds and decreased at bases Abdomen: soft, nontender, nondistended, positive bowel sounds Extremities: no cyanosis or clubbing; 1+ edema Skin: warm and intact Objective Data Vital Signs Vital Signs: Vital Signs Temp Pulse Resp BP Pulse Ox O2 Del Method O2 Flow Rate 11/19/21 08:27 78 18 98 High Flow Therapy with Na 40 11/19/21 08:00 36.6 C 82 20 169/91 H 100 11/19/21 06:00 75 10/11/22 04:00 75 20 100 High Flow Therapy with Na 40 11/19/21 04:00 79 11/19/21 04:00 36.4 C 75 20 159/95 H 100 11/19/21 00:00 99 High Flow Therapy with Na 40 11/19/21 02:00 83 11/19/21 00:00 36.6 C 50 L 20 130/80 98 11/19/21 00:00 70 20 100 High Flow Therapy with Na 40 11/19/21 00:00 76 11/18/21 22:00 70 11/18/21 20:00 81 20 100 High Flow Therapy with Na 40 11/18/21 20:00 81 11/18/21 21:58 81 11/18/21 20:00 36.7 C 88 20 167/76 H 100 11/18/21 16:00 98 High Flow Therapy with Na 40 11/18/21 12:00 98 High Flow Therapy with Na 40 11/18/21 18:00 72 11/18/21 16:00 70 11/18/21 14:00 85 11/18/21 12:00 76 11/18/21 10:00 85 11/18/21 16:00 36.6 C 84 24 H 137/81 95 11/18/21 12:00 36.6 C 73 20 186/107 H 95 Intake/Output Intake/Output: Intake & Output 11/16/21 11/17/21 11/18/21 11/19/21 23:59 23:59 23:59 23:59 Intake Total 1070 1560 Output Total 600 2300 2250 300 [facility] -600 -1230 -690 -300 Meds/Results Medications: Active Medications Generic Name Dose Route Start Last Admin Trade Name Freq PRN Reason Stop Dose Admin Albuterol 2.5 mg 11/17/21 05:24 Albuterol Sulfate Neb 2.5 Mg/0.5 Ml Inh INHALATION Q4H PRN shortness of breath Apixaban 5 mg 11/17/21 09:00 11/18/21 21:58 Apixa
[2021-11-19] MEDS: CHOLECALCIFEROL 1,000 UNITS TABLET 1000 UNITS PO (10:12)
[2021-11-19] MEDS: carvediloL 25 MG TABLET PO ×2 (10:12→20:40)
[2021-11-19] MEDS: APIXABAN 5 MG TABLET PO ×2 (10:12→20:40)
[2021-11-19] MEDS: ISOSORBIDE DINITRATE 10 MG TABLET PO ×3 (10:12→16:59)
[2021-11-19] MEDS: POTASSIUM CHLORIDE 10 MEQ TABLET.ER PO (10:12)
[2021-11-19] MEDS: FERROUS SULFATE 324 MG TABLET PO (10:13)
[2021-11-19] MEDS: CYANOCOBALAMIN 1,000 MCG TABLET 5000 MCG PO (10:13)
[2021-11-19] MEDS: hydrALAZINE HCL 50 MG TABLET PO ×3 (10:13→16:59)
[2021-11-19] MEDS: MAGNESIUM OXIDE 200 MG TABLET PO (10:13)
[2021-11-19] MEDS: EMPAGLIFLOZIN 10 MG TABLET PO (10:13)
[2021-11-19] MEDS: FUROSEMIDE 40 MG TABLET PO ×2 (10:14→16:59)
[2021-11-19] MEDS: CALCIUM CARBONATE (TUMS) 500 MG (200 MG ELEMENTAL) 400 MG BY MOUTH (10:14)
[2021-11-19] MEDS: SPIRONOLACTONE 25 MG TABLET PO (10:14)
--- NOTE | 2021-11-19 11:11 | PM.IMPN ---
Progress Note: A&P Assessment and Plan (1) CHF exacerbation: Code(s): I50.9 - Heart failure, unspecified Status: Acute Assessment and Plan: patient appears to be euvolemic. will continue current dose of Lasix. (2) Acute and chronic respiratory failure: Code(s): J96.20 - Acute and chronic respiratory failure, unspecified whether with hypoxia or hypercapnia Status: Acute Assessment and Plan: Appreciate Pulmonary input patient has been on Airvo for the last 2 days. Will try to get her on nasal cannula. Patient may require high-flow nasal cannula oxygen. Will see how she does by tomorrow. May need to set up home oxygen at high flow. Patient refusing hospice evaluation (3) Diastolic dysfunction: Code(s): I51.89 - Other ill-defined heart diseases Status: Acute Assessment and Plan: continue to monitor continue current regimen (4) KEIRA (obstructive sleep apnea): Code(s): G47.33 - Obstructive sleep apnea (adult) (pediatric) Status: Acute Assessment and Plan: patient is on nasal cannula supplemental oxygen 3 L at bedtime patient has refused CPAP in the past (5) Persistent atrial fibrillation: Code(s): I48.19 - Other persistent atrial fibrillation Status: Chronic Assessment and Plan: anticoagulated rate controlled (6) JUAN MANUEL (acute kidney injury): Code(s): N17.9 - Acute kidney failure, unspecified Status: Acute Assessment and Plan: patient does have chronic kidney disease and she is likely At baseline. Plan will evaluate how much oxygen patient will need tomorrow. This will need to be set up prior to discharge. Subjective Date/time seen: 11/19/21 11:11 no new complaints Exam Const: General: comfortable, no acute distress, well developed, alert, awake and average body habitus Nutritional Appearance: average body habitus Orientation/consciousness: patient oriented x3 HENMT: Head: normal to inspection, normocephalic and atraumatic Ears: hearing grossly normal bilaterally Face/Nose/Sinus: normal facial exam Face and sinus: normal facial exam Eyes: General: appearance normal, both eyes and all related structures Pupils: Equal, round and reactive pupils present EOM: EOMs intact bilaterally Neck: Neck: full ROM, no lymphadenopathy and no JVD Thyroid: thyroid normal Lymphatic: no lymphadenopathy noted Resp: Effort & Inspection: normal respiratory effort and able to speak in complete sentences Auscultation: clear to auscultation bilaterally Cardio: Jugular venous distension: no JVD Rate: regular rate Rhythm: abnormal rhythm irregularly irregular Heart sounds: S1 normal heart sound present, S2 normal heart sound present, no gallops and Murmur heart sound present GI: Inspection: normal to inspection : General: Yes deferred Skin: Rashes: no rashes Wounds: no wounds Neuro: General: patient oriented x3, CN's II-XI intact bilaterally and Unable to assess gait Cranial nerves: Yes CN's II-XII intact bilaterally and Yes Equal, round and reactive pupils present Cognition (Neuro): normal cognition Speech: normal speech Gait exam (Neuro): Unable to assess gait Motor exam (neuro): 5/5 motor strength present throughout Sensory Exam: No Sensory deficit (Neuro) Extrem: General: edema bilateral (LE 3+) Objective Data Vital Signs Vital Signs: Vital Signs - 24 hr 11/18/21 12:00 11/18/21 16:00 11/18/21 12:00 Temperature 98 F 98 F Pulse Rate 73 84 76 Respiratory Rate 20 24 H Blood Pressure 186/107 H 137/81 Pulse Oximetry 95 95 Oxygen Delivery Oxygen Flow Rate Fraction of Inspired Oxygen 11/18/21 14:00 11/18/21 16:00 11/18/21 18:00 Temperature Pulse Rate 85 70 72 Respiratory Rate Blood Pressure Pulse Oximetry Oxygen Delivery Oxygen Flow Rate Fraction of Inspired Oxygen 11/18/21 12:00 11/18/21 16:00 11/18/21 20:00 Temperature 98.0
--- NOTE | 2021-11-19 12:23 | ECHO_ITS ---
Patient Info Name: Kelsy Coronado Age: 76 years : 1945 Gender: Female Ht: 65 in Wt: 192 lbs BSA: 2.03 m2 HR: 84 bpm BP: 169 / 91 mmHg Heart Rhythm: Atrial Fibrillation Technical Quality: Fair Exam Date: 11/19/2021 9:08 AM Exam Location: [facility] Card Pulmonary Patient Status: Inpatient Admit Date: 11/18/2021 Staff Ordering Physician: Skinny Colon MD Marketing Producer: Maylin Pierson RDCS Attending Provider: Dorota David MD Referring Physician: Isaiah CHESTER; Exam Type: CA echo doppler w bubble study Study Info Indications - hypoxia, assess for pfo Complete two-dimensional, color flow and Doppler transthoracic echocardiogram is performed with agitated saline. Contrast/Agitated Saline Contrast/Ag. Saline: Agitated Saline Amount: 20.00 ml Administered By: Darline Wilson RDCS Existing IV Access: Yes IV Access Condition: patent with no signs of infiltration Summary 1. Left ventricular chamber dimension is normal. 2. Left ventricular systolic function is normal, estimated at 60-65%. 3. There is mildly increased left ventricular wall thickness. 4. The left ventricular diastolic function is abnormal. 5. E/e' 16 is elevated. 6. Atrial fibrillation. 7. Left atrial chamber dimension is severely enlarged. 8. Right atrial chamber dimension is moderately enlarged. 9. There is mild aortic valve sclerosis. 10. There is mild to moderate mitral valve regurgitation. 11. There is mild tricuspid valve regurgitation. 12. Moderate pulmonary hypertension, estimated pulmonary arterial systolic pressure is 50 mmHg. 13. There is trace pulmonic regurgitation. 14. Normal inferior vena cava with <50% collapse upon inspiration consistent with elevated right atrial pressure, 10 mmHg. Left Ventricle Atrial fibrillation. E/e' 16 is elevated. Left ventricular chamber dimension is normal. Left ventricular systolic function is normal, estimated at 60-65%. There is mildly increased left ventricular wall thickness. The left ventricular diastolic function is abnormal. Right Ventricle Right ventricular systolic function is normal based on normal TAPSE 1.7 cm.. Right ventricular chamber dimension is not well visualized. Left Atria Left atrial chamber dimension is severely enlarged. Right Atria Right atrial chamber dimension is moderately enlarged. Atrial Septum Agitated saline injection with and without valsalva maneuver opacified right side cardiac chambers without obvious shunt to left side cardiac chambers. Intact interatrial septum visualized by 2D and agitated saline imaging. Aortic Valve The aortic valve is trileaflet. There is mild aortic valve sclerosis. There is no aortic valve stenosis. There is no aortic valve regurgitation. Pulmonic Valve There is trace pulmonic regurgitation. Mitral Valve There is no mitral valve stenosis. There is mild to moderate mitral valve regurgitation. Tricuspid Valve There is mild tricuspid valve regurgitation. Moderate pulmonary hypertension, estimated pulmonary arterial systolic pressure is 50 mmHg. Pericardium/Pleural There is no pericardial effusion. Inferior Vena Cava Normal inferior vena cava with <50% collapse upon inspiration consistent with elevated right atrial pressure, 10 mmHg. Aorta The aortic root size at the sinus of Valsalva is normal. Left Ventricular Outflow Tract
[2021-11-19] MEDS: SODIUM CHLORIDE NASAL GEL 14.1 GM 1 APPLIC NASAL (20:41)
[2021-11-20] VITALS (22 sets, daily range): BP systolic 137–158; BP diastolic 65–84; PULSE 62–98; RESP 17–22; TEMP 36.4–36.8; O2SAT 79–100
[2021-11-20 04:50] LABS: Basophils Percent Auto 0.3 % (0.2-1.2); Eosinophils Absolute Auto 0.1 K/mm3 (0-0.3); Eosinophils Percent Auto 2.3 % (0-4.4); Hematocrit 25.7 % (37.0-47.0); Hemoglobin 7.6 g/dL (12.0-15.0); Immature Granulocyte Absolute 0.01 K/mm3 (0.00-0.031); Immature Granulocyte Percent A 0.3 % (0-0.5); Lymphocytes Absolute Auto 1.17 K/mm3 (0.9-3.2); Lymphocytes Percent Auto 33.5 % (18.3-44.2); Mean Corpuscular HGB Conc 29.6 g/dl (32-36); Mean Corpuscular Hemoglobin 23.5 pg (26-34); Mean Corpuscular Volume 79.3 fl (80-100); Mean Platelet Volume 10.5 fl (7.4-10.4); Monocytes Absolute Auto 0.5 K/mm3 (0.1-0.6); Monocytes Percent Auto 15.5 % (2.6-8.5); Neutrophils Absolute Auto 1.7 K/mm3 (1.3-6.7); Neutrophils Percent Auto 48.1 % (45.5-73.1); Platelet Count Result 167 k/mm3 (150-375); Red Blood Count 3.24 M/mm3 (4.2-5.4); Red Cell Distribution Width 19.7 % (11.5-14.5); White Blood Count 3.5 K/mm3 (4.5-10.0)
[2021-11-20 05:04] LABS: Albumin Level 3.5 g/dL (3.5-5.1); Blood Urea Nitrogen 28 mg/dL (7-17); Carbon Dioxide > 40 mmol/L (22-30); Chloride 84 mmol/L (98-107); Estimated CRCL calculation 24 ml/min; Estimated Glomerular Filt Rate 26; Glucose 112 mg/dL (65-110); Phosphorus 4.5 mg/dL (2.5-4.5); Potassium 3.6 mmol/L (3.4-5.0); Sodium 141 mmol/L (137-145)
--- NOTE | 2021-11-20 08:09 | PM.PNCARD ---
Progress Note: A&P Assessment and Plan (1) Diastolic heart failure: Code(s): I50.30 - Unspecified diastolic (congestive) heart failure Status: Acute Assessment and Plan: She appears euvolemic on physical exam. Monitor electrolytes and renal function. Started Jardiance 10 mg daily for HFPEF. 11/19/21 Echo: EF 60-65%, diastolic dysfunction (E/e' 16), severe LAE, mod WILBUR, mild-mod MR, mod TR, RVSP 50 mmHg. No PFO. D/C IV Lasix. Started Furosemide 40 mg PO BID and Spironolactone 25 mg daily. Monitor potassium and renal function. (2) Persistent atrial fibrillation: Code(s): I48.19 - Other persistent atrial fibrillation Status: Chronic Assessment and Plan: [id number] 3. On Eliquis. Rate is controlled on Coreg. (3) Hypertension: Code(s): I10 - Essential (primary) hypertension Status: Chronic Assessment and Plan: High. On Coreg 25 mg BID, Isordil 10 mg TID, Hydralazine 50 mg TID. Monitor. Started Spironolactone 25 mg daily. (4) Dyslipidemia: Code(s): E78.5 - Hyperlipidemia, unspecified Status: Acute Subjective Date/time seen: 11/20/21 08:09 Interval history: Denies chest pain. Has chronic sob. Exam Const: General: cooperative, healthy appearing and comfortable Resp: Auscultation: clear to auscultation bilaterally, no crackles, no rales, no rhonchi and no wheezes Cardio: Rate: regular rate Rhythm: abnormal rhythm Heart sounds: no murmurs Peripheral pulses: dorsalis pedis present GI: GI Palp: No abdominal tenderness and Yes Soft to palpation Neuro: General: oriented to person, oriented to place and oriented to time Extrem: Right lower extremity: no edema Left lower extremity: no edema Objective Data Vital Signs Vital Signs: Vital Signs - 24 hr 11/19/21 08:27 11/19/21 10:00 11/19/21 12:00 Temperature 97.4 F L Pulse Rate 78 84 82 Respiratory Rate 18 16 Blood Pressure 163/86 H Pulse Oximetry 98 93 Oxygen Delivery High Flow Therapy with Na Oxygen Flow Rate 40 Fraction of Inspired Oxygen 50 11/19/21 12:00 11/19/21 12:00 11/19/21 14:00 Temperature Pulse Rate 96 77 Respiratory Rate Blood Pressure Pulse Oximetry 93 Oxygen Delivery High Flow Therapy with Na Oxygen Flow Rate 6 Fraction of Inspired Oxygen 11/19/21 16:00 11/19/21 16:00 11/19/21 16:00 Temperature 97.6 F Pulse Rate 82 83 Respiratory Rate 12 Blood Pressure 133/81 Pulse Oximetry 97 93 Oxygen Delivery High Flow Therapy with Na Oxygen Flow Rate 6 Fraction of Inspired Oxygen 11/19/21 18:00 11/19/21 20:00 11/19/21 20:40 Temperature Pulse Rate 86 86 75 Respiratory Rate 12 Blood Pressure Pulse Oximetry 93 Oxygen Delivery High Flow Therapy with Na Oxygen Flow Rate 6 Fraction of Inspired Oxygen 11/19/21 20:00 11/19/21 20:00 11/19/21 22:00 Temperature 98.6 F Pulse Rate 76 74 85 Respiratory Rate 18 Blood Pressure 122/62 Pulse Oximetry 93 Oxygen Delivery Oxygen Flow Rate Fraction of Inspired Oxygen 11/19/21 23:20 11/20/21 00:00 11/20/21 00:00 Temperature 98.6 F Pulse Rate 80 82 82 Respiratory Rate 20 20 Blood Pressure 139/72 Pulse Oximetry 100 100 Oxygen Delivery High Flow Therapy with Na Oxygen Flow Rate 6 Fraction of Inspired Oxygen 11/19/21 21:35 11/20/21 02:00 11/20/21 04:00 Temperature Pulse Rate 73 73 Respiratory Rate 20 Blood Pressure Pulse Oximetry 99 100 Oxygen Delivery High Flow Therapy with Na Oxygen Flow Rate 6 6 Fraction of Inspired Oxygen 11/20/21 04:00 11/20/21 04:00 11/20/21 06:00 Temperature 97.7 F Pulse Rate 81 84 98 Respiratory Rate 20 Blood Pressure 137/84 Pulse Oximetry 100 Oxygen Delivery Oxygen Flow Rate Fraction of Inspired Oxygen Intake/Output Intake/Output: Intake & Output 11/17/21 11/18/21 11/19/21 11/20/21 23:59 23:59 23:59 23:59 Intake Total 0170 8146 565
--- NOTE | 2021-11-20 10:09 | PM.PNPUL ---
Progress Note: A&P Assessment and Plan (1) Respiratory failure with hypoxia and hypercapnia: Code(s): J96.91 - Respiratory failure, unspecified with hypoxia; J96.92 - Respiratory failure, unspecified with hypercapnia Status: Acute Assessment and Plan: 75-year-old with a history of hypoxic respiratory failure on 3 L rest and 4 L with ambulation, 3 L night, chronic right diaphragm paralysis (seen on our first CXR from 01/18/2016), PFTs on 07/03/2021 demonstrated normal spirometry, normal lung volumes with a moderately severe decreased FVC and FEV1. There is no bronchodilator response, and her severely decreased on adjusted DLCO normalized when adjusted for alveolar volume. There was no significant change in the FVC and FEV1 from 12/28/2019. KEIRA diagnosed 12/23/2018 and subsequently intolerant of BiPAP, Nocturnal hypoxemia from 06/26/2021 on 3 L nasal cannula saturations less than or equal to 88% of 20.9 minutes. overnight oximetry on 07/11/2021 on 5 L nasal cannula showed time with saturation less than or equal to 88% at 187.5 minutes. Patient was placed back to 3 L nasal cannula. She had a prior echo which showed an EF of 45% and a DEVON did not show any ASD or PFO although has not had a dedicated bubble study. Echo on 05/10/2021 with Heart failure with normal systolic function 55-60%) and diastolic dysfunction, severely enlarged LA, mild to moderate MR, PASP 47 with normal RV size and function and normal RA size. HTN, atrial fibrillation on chronic anticoagulation. Etiology of patient's hypoxemic and hypercarbic respiratory failure include: fluid overload from HFpEF and abnormal diastolic function, obesity hypoventilation syndrome, chronic right diaphragm paralysis, untreated obstructive sleep apnea. I do not see evidence of an active infection and the patient is a never smoker and does not have COPD or asthma. Patient presents with edema, congestion on her chest x-ray, elevated BNP and has responded to IV Lasix with 2.7 L out since admission. Unfortunately patient's oxygen requirements have increased and she remains with dyspnea on exertion. I would continue aggressive diuresis as tolerated by her cardiac and renal systems per hospitalist and Cardiology teams. Patient has obesity hypoventilation syndrome with a blood gas of 7.39/80/48 and would benefit from noninvasive ventilation. Unfortunately patient has been intolerant to BiPAP for many years and again tells me today she is not willing to try BiPAP. I told her this may be her last hope to provider any type of comfortable existence in the future and she declines any attempt at initiating noninvasive ventilation. The patient has chronic right hemidiaphragm attic elevation since 2016. The patient's has untreated obstructive sleep apnea diagnosed with an inpatient sleep study at [facility] on 12/23/2018 but has subsequently been intolerant to BiPAP. as above patient is on willing to attempt noninvasive ventilation at this time. she tells me they made multiple adjustments and used multiple mass but she just cannot wear the mask on her face and has never been able to sleep with the mask on her face. Patient has been on apixaban for atrial fibrillation making PE less likely, her D-dimer is positive, negative upper and lower extremity Dopplers to exclude DVT. Continue apixaban for at this time. Will check echocardiogram with bubble study to exclude right to left shunt. Cardiology was consulted and jardiance 10 mg a day was started. 11/19 Patient remains on high-flow nasal cannula oxygen with Airvo 40 L and 60% FiO2 with saturations 100%. Patient states she slept a little bit and denies any worsening shortness of breath than usual.? Patient states that the high-flow irritates her nose at times. White blood cell count is 3.2, creatinine is 1.8, crit patient has diuresed -2 0.8 L since admission. Etiology of patient's hypoxemic and hypercarbic respir
[2021-11-20] MEDS: MAGNESIUM OXIDE 200 MG TABLET PO (12:03)
[2021-11-20] MEDS: carvediloL 25 MG TABLET PO ×2 (12:03→20:46)
[2021-11-20] MEDS: CYANOCOBALAMIN 1,000 MCG TABLET 5000 MCG PO (12:04)
[2021-11-20] MEDS: APIXABAN 5 MG TABLET PO ×2 (12:04→20:46)
[2021-11-20] MEDS: CHOLECALCIFEROL 1,000 UNITS TABLET 1000 UNITS PO (12:04)
[2021-11-20] MEDS: hydrALAZINE HCL 50 MG TABLET PO ×2 (12:04→18:10)
[2021-11-20] MEDS: FERROUS SULFATE 324 MG TABLET PO (12:04)
[2021-11-20] MEDS: EMPAGLIFLOZIN 10 MG TABLET PO (12:04)
[2021-11-20] MEDS: FUROSEMIDE 40 MG TABLET PO ×2 (12:04→18:10)
[2021-11-20] MEDS: SPIRONOLACTONE 25 MG TABLET PO (12:04)
[2021-11-20] MEDS: CALCIUM CARBONATE (TUMS) 500 MG (200 MG ELEMENTAL) 400 MG BY MOUTH (12:05)
[2021-11-20] MEDS: POTASSIUM CHLORIDE 10 MEQ TABLET.ER PO (12:05)
[2021-11-20] MEDS: ISOSORBIDE DINITRATE 10 MG TABLET PO ×2 (12:05→18:11)
--- NOTE | 2021-11-20 12:58 | P.PNNP_ITS ---
Progress Note: A&P Assessment and Plan (1) Stage 3b chronic kidney disease: Code(s): N18.32 - Chronic kidney disease, stage 3b Status: Chronic Assessment and Plan: * baseline creatinine runs around 1.8mg/dl * presumably due to HTN and necessity of chronic diuretic therapy * recent hospitalization at [facility] about a month ago -- with aggressive diuresis, her creatinine went as high as 2.8mg/dl * hence, suspect her renal function will always fluctuate depending on the need for chronic diuretics to maintain her volume status (2) CHF exacerbation: Code(s): I50.9 - Heart failure, unspecified Status: Acute Assessment and Plan: * recurrent issue -- admitted to [facility] in October 2021 for same issue * follow daily weights * monitor I/Os * fluid restriction * see #1 with regard to renal function and diuresis * Cardiology following with recommendations noted (3) Acute and chronic respiratory failure: Code(s): J96.20 - Acute and chronic respiratory failure, unspecified whether with hypoxia or hypercapnia Status: Acute Assessment and Plan: * on chronic home oxygen already * Pulmonary following * ongoing recommendations noted * monitor respiratory status (4) Hypertension: Code(s): I10 - Essential (primary) hypertension Status: Chronic Assessment and Plan: * doing better * on carvedilol, nitrate, and hydralazine -- titrate as needed * follow trend of hemodynamics (5) Anemia: Code(s): D64.9 - Anemia, unspecified Status: Acute Assessment and Plan: * possibly related to CKD versus acute illness... * check iron studies * consider empiric Epogen/Aranesp (6) Persistent atrial fibrillation: Code(s): I48.19 - Other persistent atrial fibrillation Status: Chronic Assessment and Plan: * rate control strategy * on anticoagulation Will continue to follow. Subjective Date/time seen: 11/20/21 12:58 Respiratory status/breathing seems to be slowly improving as are oxygen requirements in the last 24 hours; shortness of breath more present with any exertional activity; reasonably urine output noted with relative stability in renal function; no acute distress reported at this time; no events overnight or earlier this AM. Exam Narrative: General: elderly AA female in NAD Heart: normal S1 and S2; no rub Lungs: coarse breath sounds and decreased at bases Abdomen: soft, nontender, nondistended, positive bowel sounds Extremities: no cyanosis or clubbing; 1+ edema Skin: warm and intact Objective Data Vital Signs Vital Signs: Vital Signs Temp Pulse Resp BP Pulse Ox O2 Del Method O2 Flow Rate 11/20/21 12:00 36.4 C L 83 20 142/65 H 91 11/20/21 11:59 36.4 C L 83 20 142/65 H 91 11/20/21 08:00 36.5 C 84 22 H 155/81 H 100 11/20/21 06:00 98 11/20/21 04:00 36.5 C 84 20 137/84 100 11/20/21 04:00 81 11/20/21 04:00 73 20 100 High Flow Therapy with Na 6 11/20/21 02:00 73 11/19/21 21:35 99 6 11/20/21 00:00 82 20 100 High Flow Therapy with Na 6 11/20/21 00:00 82 11/19/21 23:20 37.0 C 80 20 139/72 100 11/19/21 22:00 85 11/19/21 20:00 74 11/19/21 20:00 37.0 C 76 18 122/62 93 11/19
--- NOTE | 2021-11-20 12:58 | PM.PNNEP ---
Progress Note: A&P Assessment and Plan (1) Stage 3b chronic kidney disease: Code(s): N18.32 - Chronic kidney disease, stage 3b Status: Chronic Assessment and Plan: baseline creatinine runs around 1.8mg/dl presumably due to HTN and necessity of chronic diuretic therapy recent hospitalization at [facility] about a month ago -- with aggressive diuresis, her creatinine went as high as 2.8mg/dl hence, suspect her renal function will always fluctuate depending on the need for chronic diuretics to maintain her volume status (2) CHF exacerbation: Code(s): I50.9 - Heart failure, unspecified Status: Acute Assessment and Plan: recurrent issue -- admitted to [facility] in October 2021 for same issue follow daily weights monitor I/Os fluid restriction see #1 with regard to renal function and diuresis Cardiology following with recommendations noted (3) Acute and chronic respiratory failure: Code(s): J96.20 - Acute and chronic respiratory failure, unspecified whether with hypoxia or hypercapnia Status: Acute Assessment and Plan: on chronic home oxygen already Pulmonary following ongoing recommendations noted monitor respiratory status (4) Hypertension: Code(s): I10 - Essential (primary) hypertension Status: Chronic Assessment and Plan: doing better on carvedilol, nitrate, and hydralazine -- titrate as needed follow trend of hemodynamics (5) Anemia: Code(s): D64.9 - Anemia, unspecified Status: Acute Assessment and Plan: possibly related to CKD versus acute illness... check iron studies consider empiric Epogen/Aranesp (6) Persistent atrial fibrillation: Code(s): I48.19 - Other persistent atrial fibrillation Status: Chronic Assessment and Plan: rate control strategy on anticoagulation Will continue to follow. Subjective Date/time seen: 11/20/21 12:58 Respiratory status/breathing seems to be slowly improving as are oxygen requirements in the last 24 hours; shortness of breath more present with any exertional activity; reasonably urine output noted with relative stability in renal function; no acute distress reported at this time; no events overnight or earlier this AM. Exam Narrative: General: elderly AA female in NAD Heart: normal S1 and S2; no rub Lungs: coarse breath sounds and decreased at bases Abdomen: soft, nontender, nondistended, positive bowel sounds Extremities: no cyanosis or clubbing; 1+ edema Skin: warm and intact Objective Data Vital Signs Vital Signs: Vital Signs Temp Pulse Resp BP Pulse Ox O2 Del Method O2 Flow Rate 11/20/21 12:00 36.4 C L 83 20 142/65 H 91 11/20/21 11:59 36.4 C L 83 20 142/65 H 91 11/20/21 08:00 36.5 C 84 22 H 155/81 H 100 11/20/21 06:00 98 11/20/21 04:00 36.5 C 84 20 137/84 100 11/20/21 04:00 81 11/20/21 04:00 73 20 100 High Flow Therapy with Na 6 11/20/21 02:00 73 11/19/21 21:35 99 6 11/20/21 00:00 82 20 100 High Flow Therapy with Na 6 11/20/21 00:00 82 11/19/21 23:20 37.0 C 80 20 139/72 100 11/19/21 22:00 85 11/19/21 20:00 74 11/19/21 20:00 37.0 C 76 18 122/62 93 11/19/21 20:40 75 11/19/21 20:00 86 12 93 High Flow Therapy with Na 6 11/19/21 18:00 86 Intake/Output Intake/Output: Intake & Output 11/17/21 11/18/21 11/19/21 11/20/21 23:59 23:59 23:59 23:59 Intake Total 1070 1560 580 360 Output Total 2300 2250 801 600 [facility] -[phone] [phone] [phone] [phone] Meds/Results Medications: Active Medications Generic Name Dose Route Start Last Admin Trade Name Ronny PRN Reason Stop Dose Admin Albuterol 2.5 mg 11/17/21 05:24 Albuterol Sulfate Neb 2.5 Mg/0.5 Ml Inh INHALATION Q4H PRN shortness of breath Apixaban 5 mg 11/17/21 09:00 11/20/21 12:04 Apixaban 5 Mg Tablet PO 5 mg
--- NOTE | 2021-11-20 14:22 | HOMEO2EVAL ---
Evaluation was performed at [facility] Home Oxygen Evaluation RC: Home Oxygen (O2) Evaluation Start: 11/20/21 09:54 Freq: ONCE Status: Active Protocol: RPE Activity Type Activity Date Activity User E-sign Co-sign Detail Recorded Client Recorded Date Recorded By Document 11/20/21 13:18 KRM [email or web address] 11/20/21 14:22 KRM Document 11/20/21 13:19 KRM [email or web address] 11/20/21 14:22 KRM Document 11/20/21 13:20 [email or web address] [email or web address] 11/20/21 14:22 KRM Document 11/20/21 13:21 [email or web address] [email or web address] 11/20/21 14:22 KRM Document 11/20/21 13:22 [email or web address] [email or web address] 11/20/21 14:22 KRM Document 11/20/21 13:23 [email or web address] [email or web address] 11/20/21 14:22 KRM Document 11/20/21 13:25 [email or web address] [email or web address] 11/20/21 14:22 KRM Document 11/20/21 13:27 [email or web address] [email or web address] 11/20/21 14:22 KRM Document 11/20/21 13:29 [email or web address] [email or web address] 11/20/21 14:22 KRM 11/20/21 11/20/21 11/20/21 13:18 13:19 13:20 Home O2 Evaluation [Oxygen] -Test Phase Resting Resting Resting -Oxygen Delivery Room Air Nasal Cannula Nasal Cannula -Oxygen Flow Rate (L/min) 1 2 [Pulse Oximetry] -Pulse Oximetry (90-100 %) 85 L 83 L 79 L [Pulse Rate] -Pulse Rate (60-100 beats/min) 86 93 84 [Evaluation] -Activity Tolerance [Comments] -Home Oxygen Evaluation Comments [Charges] -Treatment Charges 11/20/21 11/20/21 11/20/21 13:21 13:22 13:23 Home O2 Evaluation [Oxygen] -Test Phase Resting Resting Resting -Oxygen Delivery Nasal Cannula Nasal Cannula Nasal Cannula -Oxygen Flow Rate (L/min) 2 3 4 [Pulse Oximetry] -Pulse Oximetry (90-100 %) 79 L 85 L 90 [Pulse Rate] -Pulse Rate (60-100 beats/min) 84 73 75 [Evaluation] -Activity Tolerance [Comments] -Home Oxygen Evaluation Comments [Charges] -Treatment Charges 11/20/21 11/20/21 11/20/21 13:25 13:27 13:29 Home O2 Evaluation [Oxygen] -Test Phase Exercise Exercise Exercise -Oxygen Delivery Nasal Cannula Nasal Cannula Nasal Cannula -Oxygen Flow Rate (L/min) 4 6 8 [Pulse Oximetry] -Pulse Oximetry (90-100 %) 84 L 84 L 83 L [Pulse Rate] -Pulse Rate (60-100 beats/min) 79 80 89 [Evaluation] -Activity Tolerance Fair [Comments] -Home Oxygen Evaluation Comments PT. ONLY ABLE TO STAND ON SIDE OF BED AND AMBULATE TO COMMODE. [Charges] -Treatment Charges O2 Evaluation - Inpatient
--- NOTE | 2021-11-20 14:34 | PCRCNOTE ---
PT. ALREADY ESTABLISHED WITH [facility] FOR HER O2. FAXED UPDATED O2 ORDERS TO THEM AND REQUESTED PT. HAVE A HIGH FLOW CONCENTRATOR BROUGHT TO THE HOME UPON DISCHARGE.
--- NOTE | 2021-11-20 16:11 | PM.IMPN ---
Progress Note: A&P Assessment and Plan (1) CHF exacerbation: Code(s): I50.9 - Heart failure, unspecified Status: Acute Assessment and Plan: Patient presents with acute respiratory distress felt related to CHF exacerbation. She appears euvolemic. Echocardiogram noted showing EF of 60% with diastolic dysfunction, left atrial enlargement, moderate mitral regurgitation and moderate pulmonary hypertension. She had a negative bubble study. Medications have been adjusted to oral route now. Appreciate Cardiology input. (2) Acute and chronic respiratory failure: Code(s): J96.20 - Acute and chronic respiratory failure, unspecified whether with hypoxia or hypercapnia Status: Acute Assessment and Plan: Patient had been on Airvo up until yesterday. She was able to be weaned to a nasal cannula did well with that. Her lungs exam has improved. She appears more comfortable. Home O2 evaluation today shows that she has 4 L at rest and 8 L with activity. Some this is probably related to deconditioning. Appreciate Pulmonary input. Continue to wean oxygen as she tolerates. Continue current treatment plan. (3) Diastolic dysfunction: Code(s): I51.89 - Other ill-defined heart diseases Status: Acute Assessment and Plan: As above (4) KEIRA (obstructive sleep apnea): Code(s): G47.33 - Obstructive sleep apnea (adult) (pediatric) Status: Acute Assessment and Plan: patient is on nasal cannula supplemental oxygen 3 L at bedtime but per pulmonary. will require 6L at night. Patient has refused CPAP in the past (5) Persistent atrial fibrillation: Code(s): I48.19 - Other persistent atrial fibrillation Status: Chronic Assessment and Plan: HR stable. Continue Coreg. Continue Eliquis. (6) JUAN MANUEL (acute kidney injury): Code(s): N17.9 - Acute kidney failure, unspecified Status: Acute Assessment and Plan: Unclear if this is acute or chronic but no change with treatment. Renal US okay but kidney's are small. Suspect she has chronic kidney disease. Continue to follow (7) Anemia: Code(s): D64.9 - Anemia, unspecified Status: Acute Assessment and Plan: hemoglobin low but stable. Only other prior value was 2019 which was normal. Will proceed with anemia workup. Plan DVT prophylaxis: Eliquis code status: DNR diet: heart healthy diet with fluid restriction Subjective Date/time seen: 11/20/21 16:11 Interval history: 75yo female with a history of chronic right diaphragm paralysis, untreateed KEIRA, chronic resp failur (3L at rest and 4L with activity) and CHF here for SOB. Assuming care. Chart reviewed. Patient came off high-flow nasal cannula yesterday. She does not feel short of breath lying still but does have dyspnea on exertion when she is up to the chair. She still has a cough productive of white green sputum. She does state that is occasionally with hemoptysis but this is longstanding. She does have sinus disease chronically. She is able to walk to a bedside commode. Exam Narrative: AF 97.5 142/65 89 20 97% on 6L (desat with home O2 eval) Gen - NARD sititng up in bed Chest - Right base inspiratory crackles otherwise clear. Normal respiratory rate. No conversational dyspnea. CV - He irregularly irregular. Telemetry showing atrial fibrillation with controlled rate. Abd - Soft, NT/ND, Positive BS Ext - Trace [place] pedal edema left greater than right. Neuro - Alert and appropriate. Psych - Nml mood and affect Skin - Warm and dry Objective Data Vital Signs Vital Signs: Vital Signs - 24 hr 11/19/21 18:00 11/19/21 20:00 11/19/21 20:40 Temperature Pulse Rate 86 86 75 Respiratory Rate 12 Blood Pressure Pulse Oximetry 93 Oxygen Delivery High Flow Therapy with Na Oxygen Flow Rate 6 11/19/21 20:00 11/19/21 20:00 11/19/21 22:00 Temperat
--- NOTE | 2021-11-20 20:09 | PC.NURSE ---
2005 RECEIVED TRANSFER PT FROM IMU. PT ARRIVED IN BED MEDS AND CHART LEFT AT NURSE STATION.
[2021-11-20] MEDS: SODIUM CHLORIDE NASAL GEL 14.1 GM 1 APPLIC NASAL (20:46)
[2021-11-21 05:04] VITALS: BP 148/78; PULSE 90; RESP 17; TEMP 36.6; O2SAT 99
[2021-11-21 06:02] LABS: Basophils Percent Auto 0.3 % (0.2-1.2); Eosinophils Absolute Auto 0.1 K/mm3 (0-0.3); Eosinophils Percent Auto 2.3 % (0-4.4); Hematocrit 28.2 % (37.0-47.0); Hemoglobin 8.1 g/dL (12.0-15.0); Immature Granulocyte Absolute 0.01 K/mm3 (0.00-0.031); Immature Granulocyte Percent A 0.3 % (0-0.5); Lymphocytes Absolute Auto 0.98 K/mm3 (0.9-3.2); Lymphocytes Percent Auto 27.8 % (18.3-44.2); Mean Corpuscular HGB Conc 28.7 g/dl (32-36); Mean Corpuscular Hemoglobin 23.1 pg (26-34); Mean Corpuscular Volume 80.6 fl (80-100); Mean Platelet Volume 11.3 fl (7.4-10.4); Monocytes Absolute Auto 0.4 K/mm3 (0.1-0.6); Monocytes Percent Auto 12.2 % (2.6-8.5); Neutrophils Percent Auto 57.1 % (45.5-73.1); Platelet Count Result 177 k/mm3 (150-375); Red Cell Distribution Width 19.9 % (11.5-14.5); White Blood Count 3.5 K/mm3 (4.5-10.0)
[2021-11-21 06:24] LABS: Albumin Level 3.8 g/dL (3.5-5.1); Blood Urea Nitrogen 33 mg/dL (7-17); Calcium 9.1 mg/dL (8.4-10.2); Carbon Dioxide > 40 mmol/L (22-30); Chloride 86 mmol/L (98-107); Estimated CRCL calculation 25 ml/min; Estimated Glomerular Filt Rate 27; Glucose 118 mg/dL (65-110); Magnesium 2.1 mg/dL (1.6-2.3); Phosphorus 4.6 mg/dL (2.5-4.5); Potassium 4.4 mmol/L (3.4-5.0); Sodium 143 mmol/L (137-145)
[2021-11-21 07:04] LABS: Iron 37 ug/dL (37-170)
[2021-11-21 07:13] LABS: Percent Iron Saturation 17 % (20-50)
[2021-11-21 07:27] LABS: Folic Acid 11.6 ng/mL (2.76->20); Vitamin B12 > 1000.0 pg/mL (239-931)
--- NOTE | 2021-11-21 07:58 | PM.PNCARD ---
Progress Note: A&P Assessment and Plan (1) Diastolic heart failure: Code(s): I50.30 - Unspecified diastolic (congestive) heart failure Status: Acute Assessment and Plan: She appears euvolemic on physical exam. Monitor electrolytes and renal function. Started Jardiance 10 mg daily for HFPEF. 11/19/21 Echo: EF 60-65%, diastolic dysfunction (E/e' 16), severe LAE, mod WILBUR, mild-mod MR, mod TR, RVSP 50 mmHg. No PFO. D/C IV Lasix. Started Furosemide 40 mg PO BID and Spironolactone 25 mg daily. Monitor potassium and renal function. May D/c home from cardiology standpoint and f/u with me in 1-2 weeks. (2) Persistent atrial fibrillation: Code(s): I48.19 - Other persistent atrial fibrillation Status: Chronic Assessment and Plan: [id number] 3. On Eliquis. Rate is controlled on Coreg. (3) Hypertension: Code(s): I10 - Essential (primary) hypertension Status: Chronic Assessment and Plan: Mildly high and improving. On Coreg 25 mg BID, Isordil 10 mg TID, Hydralazine 50 mg TID. Monitor. Started Spironolactone 25 mg daily. (4) Dyslipidemia: Code(s): E78.5 - Hyperlipidemia, unspecified Status: Acute Subjective Date/time seen: 11/21/21 07:58 Interval history: Denies chest pain. Has chronic sob. Exam Const: General: cooperative, healthy appearing and comfortable Resp: Auscultation: clear to auscultation bilaterally, no crackles, no rales, no rhonchi and no wheezes Cardio: Rate: regular rate Rhythm: abnormal rhythm Heart sounds: no murmurs Peripheral pulses: dorsalis pedis present GI: GI Palp: No abdominal tenderness and Yes Soft to palpation Neuro: General: oriented to person, oriented to place and oriented to time Extrem: Right lower extremity: no edema Left lower extremity: no edema Objective Data Vital Signs Vital Signs: Vital Signs - 24 hr 11/20/21 08:00 11/20/21 11:59 11/20/21 12:03 Temperature 97.7 F 97.5 F L Pulse Rate 84 83 78 Respiratory Rate 22 H 20 Blood Pressure 155/81 H 142/65 H Pulse Oximetry 100 91 Oxygen Delivery Oxygen Flow Rate 11/20/21 13:18 11/20/21 13:19 11/20/21 13:20 Temperature Pulse Rate 86 93 84 Respiratory Rate Blood Pressure Pulse Oximetry 85 L 83 L 79 L Oxygen Delivery Room Air Nasal Cannula Nasal Cannula Oxygen Flow Rate 1 2 11/20/21 13:21 11/20/21 13:22 11/20/21 13:23 Temperature Pulse Rate 84 73 75 Respiratory Rate Blood Pressure Pulse Oximetry 79 L 85 L 90 Oxygen Delivery Nasal Cannula Nasal Cannula Nasal Cannula Oxygen Flow Rate 2 3 4 11/20/21 13:25 11/20/21 13:27 11/20/21 13:29 Temperature Pulse Rate 79 80 89 Respiratory Rate Blood Pressure Pulse Oximetry 84 L 84 L 83 L Oxygen Delivery Nasal Cannula Nasal Cannula Nasal Cannula Oxygen Flow Rate 4 6 8 11/20/21 16:00 11/20/21 12:00 11/20/21 08:00 Temperature 98.2 F 97.5 F L Pulse Rate 62 83 Respiratory Rate 20 20 Blood Pressure 153/82 H 142/65 H Pulse Oximetry 97 91 97 Oxygen Delivery Nasal Cannula Oxygen Flow Rate 5 11/20/21 20:46 11/20/21 20:00 11/20/21 21:49 Temperature 98.2 F Pulse Rate 62 66 Respiratory Rate 17 Blood Pressure 158/82 H Pulse Oximetry 97 100 Oxygen Delivery Nasal Cannula Oxygen Flow Rate 5 11/21/21 05:04 11/20/21 21:45 Temperature 97.8 F Pulse Rate 90 Respiratory Rate 17 Blood Pressure 148/78 H Pulse Oximetry 99 98 Oxygen Delivery Oxygen Flow Rate 6 Intake/Output Intake/Output: Intake & Output 11/18/21 11/19/21 11/20/21 11/21/21 23:59 23:59 23:59 23:59 Intake Total 8642 856 2026 50 Output Total 2250 801 1900 [facility] -[phone] 50 Meds/Results Medications: Active Medications Generic Name Dose Route Start Last Admin Trade Name Freq PRN Reason Stop Dose Admin Albuterol 2.5 mg 11/17/21 05:24 Albuterol Sulfate Neb 2.5 Mg/0.5 Ml Inh INHALATION Q4H PRN shortness of breath Apixaban 5 m
[2021-11-21 09:10] VITALS: O2SAT 98
[2021-11-21] MEDS: FERROUS SULFATE 324 MG TABLET PO (09:12)
[2021-11-21] MEDS: POTASSIUM CHLORIDE 10 MEQ TABLET.ER PO (09:13)
[2021-11-21] MEDS: APIXABAN 5 MG TABLET PO (09:13)
[2021-11-21] MEDS: CALCIUM CARBONATE (TUMS) 500 MG (200 MG ELEMENTAL) 400 MG BY MOUTH (09:13)
[2021-11-21] MEDS: hydrALAZINE HCL 50 MG TABLET PO ×3 (09:13→16:18)
[2021-11-21] MEDS: EMPAGLIFLOZIN 10 MG TABLET PO (09:14)
[2021-11-21] MEDS: FUROSEMIDE 40 MG TABLET PO ×2 (09:14→16:18)
[2021-11-21] MEDS: ISOSORBIDE DINITRATE 10 MG TABLET PO ×3 (09:14→16:18)
[2021-11-21 09:15] VITALS: PULSE 98
[2021-11-21] MEDS: CYANOCOBALAMIN 1,000 MCG TABLET 5000 MCG PO (09:15)
[2021-11-21] MEDS: MAGNESIUM OXIDE 200 MG TABLET PO (09:15)
[2021-11-21] MEDS: CHOLECALCIFEROL 1,000 UNITS TABLET 1000 UNITS PO (09:15)
[2021-11-21] MEDS: SPIRONOLACTONE 25 MG TABLET PO (09:15)
[2021-11-21] MEDS: carvediloL 25 MG TABLET PO (09:15)
[2021-11-21 09:45] VITALS: BP 135/61; PULSE 96; RESP 16; TEMP 37; O2SAT 94
[2021-11-21] MEDS: guaiFENesin 12 HR 600 MG TABCR PO (11:22)
[2021-11-21 14:03] VITALS: BP 126/71; PULSE 87; RESP 16; TEMP 36.7; O2SAT 90
[2021-11-21 15:04] VITALS: O2SAT 93
--- NOTE | 2021-11-21 16:02 | PM.DS ---
DS: Admitting Diagnosis Discharge Date 11/21/21 Admitting Diagnosis Shortness of Breath DS: Discharge Diagnosis Discharge Diagnosis (1) CHF exacerbation: Code(s): I50.9 - Heart failure, unspecified Status: Acute (2) Acute and chronic respiratory failure: Code(s): J96.20 - Acute and chronic respiratory failure, unspecified whether with hypoxia or hypercapnia Status: Acute (3) Diastolic dysfunction: Code(s): I51.89 - Other ill-defined heart diseases Status: Acute (4) KEIRA (obstructive sleep apnea): Code(s): G47.33 - Obstructive sleep apnea (adult) (pediatric) Status: Acute (5) Persistent atrial fibrillation: Code(s): I48.19 - Other persistent atrial fibrillation Status: Chronic (6) JUAN MANUEL (acute kidney injury): Code(s): N17.9 - Acute kidney failure, unspecified Status: Acute (7) Anemia: Code(s): D64.9 - Anemia, unspecified Status: Acute DS: Summary Hospital Course Reason for hospitalization: 75yo female with a history of chronic right diaphragm paralysis, untreateed KEIRA, chronic resp failur (3L at rest and 4L with activity) and CHF here for SOB. Please see H&P for details Hospital Course: Patient presents with acute respiratory distress felt related to acute on chronic diastolic CHF exacerbation. She was treated with IV Lasix. Cardiology was consulted. Echo showing EF of 60% with diastolic dysfunction, left atrial enlargement, moderate mitral regurgitation and moderate pulmonary hypertension.? She had a negative bubble study. Medications were adjusted to oral route. She became euvolemic. Medications adjusted. Potassium supplement stopped due to Spironolactone added. Patient had acute on chronic respiratory failure requiring Airvo. With the above treatment, she was able to be weaned to a nasal cannula.?She appeared more comfortable.? Home O2 evaluation showed that she has 4 L at rest and 8 L with activity (but later she needed to be increased to 5L at rest).? Viola that she is deconditioned.? Appreciate Pulmonary input.?Pulmonary also recommended patient use 6L at night. Patient has refused CPAP. Ceatiine was elevated but stable. Renal US was okay but kidney's are small. She has chronic kidney disease and Cr remained stable. She has anemia of chronic disease and suspect related to her CKD. Hemoglobin was low but stable in the 8 range. She feels better. She is up walking to the bedside commode with walker. Sitting up in the chair. She was insistent on discharge. She overall did well and was able to be discharged home in stable condition. Discussed with Pulmonary. Discussed with Respiratory and equipment will be arriving tonight. She was instructed to call the [employer] if there are any concerns or call 911 and come back to the ED if she develops respiratory difficulties. Status at Discharge Cognitive/behavioral status at discharge: Stable Time Spent with Patient Time attestation: Total time spent providing and/or coordinating discharge services: 35 minutes Time spent: Greater than 30 minutes Exam Narrative: AF 98.1 126/71 87 16 93% on 5L Gen - NARD Chest - mild bibasilar inspiratory crackles otherwise clear. Normal respiratory rate. No conversational dyspnea. CV - Irregularly irregular. Abd - Soft, NT/ND, Positive BS Ext - trace pedal edema Psych - Nml mood and affect Skin - Warm and dry DS: Data Data Completed and Pending Labs on day of discharge: Labs from last 24 hours 11/21/21 11/21/21 11/21/21 05:21 05:21 05:21 WBC 3.5 L RBC 3.50 L Hgb 8.1 L Hct 28.2 L MCV 80.6 MCH 23.1 L MCHC 28.7 L RDW 19.9 H Plt Count 177 MPV 11.3 H Immature Gran % (Auto) 0.3 Neut % (Auto) 57.1 Lymph % (Auto) 27.8 Teller % (Auto) 12.2 H Eos % (Auto) 2.3 Baso % (Auto) 0.3 Lymph # (Auto) 0.98 Teller # (Auto) 0.4 Eos # (Auto) 0.1 Baso # (Auto) 0.0 Abs Immat Gran (auto)
[2021-11-21] MEDS: NEOMYCIN/POLYMYXIN/BACITRACIN OINTMENT PACKET 1 PACKET (16:17)
--- NOTE | 2021-11-25 10:34 | PC.NURSE ---
Sputum cx- growing normal oropharyngeal yuri. Dr. Ernestina mar.
== END 2021-11-21 17:00 | disposition home or self-care (01) | DRG 291 ==
LOC: ANHED 14:14 → ANHIMU 17:25 → ANH2MED 11-20 20:09
PROVIDERS: Chiropractor; Internal Medicine Nephrology; Internal Medicine Pulmonary Disease; Admitting Provider Hospitalist; Emergency Provider General Practice; PCP Internal Medicine Endocrinology, Diabetes & Metabolism; Visit Provider Internal Medicine
DX: I13.0 Hypertensive heart and chronic kidney disease with heart failure and stage 1 through stage 4 chronic kidney disease, or unspecified chronic kidney disease (principal); I50.33 Acute on chronic diastolic (congestive) heart failure; J96.21 Acute and chronic respiratory failure with hypoxia; I48.19 Other persistent atrial fibrillation; E66.2 Morbid (severe) obesity with alveolar hypoventilation; N18.32 Chronic kidney disease, stage 3b; J44.9 Chronic obstructive pulmonary disease, unspecified; J98.6 Disorders of diaphragm; D64.9 Anemia, unspecified; E78.5 Hyperlipidemia, unspecified; Z20.822 Contact with and (suspected) exposure to COVID-19; Z79.01 Long term (current) use of anticoagulants; Z99.81 Dependence on supplemental oxygen
CPT/HCPCS: 36415; 36600; 71045; 76775; 80048; 80053; 80069; 82375; 82607; 82728; 82746; 82805; 83050; 83540; 83550; 83735; 83880; 84443; 84484; 85025; 85380; 85610; 85730; 87070; 87205; 93005; 93306; 93970; 94618; 94762; 96374; 96375; 96376; 99285; A9270; C9803; G0378; J1940; U0003; U0005